=== PATIENT | male | born 1945 | race Caucasian/White ===

== ENCOUNTER → 2019-03-08 | Day surgery (SDC) | payer MEDICARE, OTHER ==
[2019-03-06 14:03] LABS: BASOPHILS % 0.5 % (0.0-1.0); EOSINOPHILS # (AUTO) 0.2 (0.0-0.4); EOSINOPHILS % 2.5 % (0.0-6.0); HEMATOCRIT 40.6 % (38.2-49.6); HEMOGLOBIN 12.5 g/dL (14.0-18.0); LYMPHOCYTES # (AUTO) 2.3 (1.0-3.2); LYMPHOCYTES % 28.4 % (18.0-39.1); MEAN CORPUSCULAR HEMOGLOBIN 28.3 pg (28-32); MEAN CORPUSCULAR HGB CONC 30.8 g/dL (31-35); MEAN CORPUSCULAR VOLUME 91.9 fL (81-99); MONOCYTES # (AUTO) 0.6 (0.2-0.8); MONOCYTES % 7.1 % (4.4-11.3); NEUTROPHILS # (AUTO) 4.9 (2.1-6.9); NEUTROPHILS % 61.2 % (38.7-80.0); PLATELET COUNT 109 x10e3/uL (140-360); RED BLOOD COUNT 4.42 x10e6/uL (4.3-5.7); RED CELL DISTRIBUTION WIDTH 14.3 % (11.7-14.4)
--- NOTE | 2019-03-06 14:40 | Diagnostic Imaging Report ---
EXAMINATION: CHEST 2 VIEWS INDICATION: Pre-operative COMPARISON: None FINDINGS: LINES/TUBES:None LUNGS:The lung volumes are low. No focal consolidation or pulmonary edema. PLEURA:No pleural effusion or pneumothorax. MEDIASTINUM:The cardiomediastinal silhouette appears normal in size and shape. BONES/SOFT TISSUES:No acute osseous injury. ABDOMEN:No free air under the diaphragm. IMPRESSION: No focal pneumonia or pulmonary edema. Signed by: Eris Major MD on 03/06/2019 2:38 PM
[~2019-03-08] MED LIST: ALLOPURINOL300 MG PO; ASPIR 8181 MG PO; ATORVASTATIN CA20 MG PO; BUPIVACAINE 0.5%/EPI 30 ML SDV INJ ONE; CEFAZOLIN SOD 1 GM/NS 50ML 100 ML IV ONE; CLOPIDOGREL75 MG PO; DEXAMETHASONE SOD PHOS INJ 4 MG/ML VIAL ONE; EPHEDRINE SULFATE INJ 50 MG/ML VIAL ONE; FENTANYL CITRATE/PF 100MCG/2 ML INJ ONE; FLOMAX0.4 MG PO; FOLIC ACID PO; KETOROLAC TROMETHAMINE 30 MG/ML VIAL ONE; LATANOPROST2.5 ML OP; LIDOCAINE HCL 2% LOCAL INJ 5 ML SDV VIAL INJ ONE; MELOXICAM7.5 MG PO; METOPROLOL SUCC50 MG PO; MIDAZOLAM HCL 2 MG/2 ML VIAL ONE; ONDANSETRON HCL INJ 2MG/ML 2ML 2 MG/ML VIAL ONE; PANTOPRAZOLE SO40 MG PO; PROPOFOL IV EMULSION 10 MG/ML 20 ML VIAL ONE; RAMIPRIL5 MG PO; SEVOFLURANE INHAL SOLN 250 ML PEN BTL ONE
--- OUTSIDE RECORDS SUMMARY | 2019-03-08 06:55 | XMS REPORT ---
Author Author [facility] Address Unknown Phone Unavailable Care Team Providers Care Mathematical Technician Name Role Phone YESI DOLAN Unavailable Unavailable Payers Payer Name Policy Type Policy Number Effective Date Expiration Date Problems This patient has no known problems. Allergies, Adverse Reactions, Alerts Allergy Name Allergy Type Status Severity Reaction(s) Onset Date Inactive Date Treating Clinician Comments IV DYE DA Active SV 2018-09-22 00:00:00 No Known Allergies DA Active U 2018-09-22 00:00:00 No Known Allergies DA Active U 2015-09-13 00:00:00 Medications This patient has no known medications. Results Test Description Test Time Test Comments Text Results Atomic Results Result Comments CHEST 2 VIEWS 2019-03-06 14:38:00 [place] [address] Patient Name: KAPIL AVILA V MR #: [id number] : 1945 Age/Sex: 73/M Req #: [id number] Adm Physician: Ordered by: YESI DOLAN MD Report #: [id number] Location: OR Room/Bed: Procedure: [id number] DX/CHEST 2 VIEWS Exam Date: Exam Time: REPORT STATUS: Signed EXAMINATION: CHEST 2 VIEWS INDICATION: Pre-operative COMPARISON: None FINDINGS: LINES/TUBES:None LUNGS:The lung volumes are low. No focal consolidation or pulmonary edema. PLEURA:No pleural effusion or pneumothorax. MEDIASTINUM:The cardiomediastinal silhouette appears normal in size and shape. BONES/SOFT TISSUES:No acute osseous injury. ABDOMEN:No free air under the diaphragm. IMPRESSION: No focal pne umonia or pulmonary edema. Signed by: Radha Parks MD on 03/06/2019 2:38 PM Dictated By: RADHA PARKS MD 37 Transcribed By: HUMAIRA on 03/06/191437 COPY TO: YESI DOLAN MD SURGICAL SPECIMENS 2018-09-30 13:58:00 RUN DATE: 09/30/18 Simran PAULSON *LIVE* PAGE 1 RUN TIME: 1358 Specimen Inquiry RUN USER: INTERFACE PATIENT: KAPIL AVILA LOC: P.5N POD B U #: [id number] AGE/SX: 73/M ROOM: [facility] RE09/27/18REG DR: Yesi Vieyra MD : 45 BED: 1 DIS: 09/28/18 STATUS: DIS Jessie TLOC: SPEC #: [id number] RECD: 09/27/18 STATUS: SOUYehuda REQ #: [id number] IRAM: 09/27/[address]: Yesi Vieyra MD ENTERED: 09/27/18 SP TYPE: SURG OTHR DR: Jono Kapser MD ORDERED: PATHGM3, PATH SPEC, DECAL, H E STAIN HISTOLOGY: TISSUE ID BLK PCS CLAUDETTE LEV / PROCEDURE DISPOSITION ____ ___ ___ ___ ___ BONE A 1 1 TISSUES: A. BONE - Lumbar Two-Lumbar Three Disc CLINICAL HISTORY Herniated Disc FINAL DIAGNOSIS LUMBAR 2-LUMBAR 3 DISC: - Benign fibrocartilaginous tissue, consistent with intervertebral disc. GROSS DESCRIPTION LUMBAR 2-LUMBAR 3 DISC: The specimen consists of multiple pieces of white-ivey fibrous tissue and possible bone which measure 3.5 x 3.5 x 1 cm in aggregate. A utility sales representative portion of the specimen is submitted in a single cassette for decalcification. RAB/eb MICROSCOPIC DESCRIPTION Microscopic performed. Signed SIGNATURE ON FILE AlesiaBrittany MD 09/30/18 1358 END OF REPORT - XR SPINE 1 V SPEC LEVEL 2018-09-28 16:05:00 Patient Name: KAPIL AVILA Unit No: [id number] EXAMS: CPT CODE: [id number] XR SPINE 1 V SPEC LEVEL [id number] Lumbar spine: COMPARISON: No prior films for comparison. LOCATION: W1 A single portable intraoperative crosstable lateral view of the lumbar spine is presented. There are 5 lumbar type vertebral bodies. A localized is found along the posterior elements at L2-L3 level. No gross fracture or dislocation seen. at 1605 Reported and signed by: Edil King MD CC: Yesi Vieyra MD Technologist: Wilmer Aceves Time: DAP (Gy m2): Air Kerma (mGy): Trscr Dt/Tm: 09/28/2018 (1605) by:[email or web address] Printed Date/Time: 09/28/2018 (0870) Name: KAPIL AVILA [facility] Phys: Yesi Lizarraga MD [address] : 1945 Age: 73 Sex: [place] [address] Loc: P.0571 1 Exam Date: 09/27/2018 Status: DIS IN PH: FAX: PAGE 1 Signed Report PROTHROMBIN TIME 2018-09-22 11:06:00 PROTHROMBIN TIME PATIENT (test code=PTP) 10.3 SECONDS 10.3-12.9 INTERNATIONAL NORMAL RATIO (test code=INR) 0.89 INR UNIT 0.9-1.11 The INR is useful only for monitoring anticoagulant therapy.It may be unreliable in the initial phase of antigoagulationand in unstable patients. Indication for Anticoagulation Recommended INR 1. Prevention of venous thomboembolism 2.0-3.0in high-risk patients; treatment of venousthrombosis and pulmonary embolism aftera course of heparin; prevention of systemicembolism in a variety of conditions, including atrial fibrillation and prothetic tissue heart valves, 2. Prosthetic mechanical heart valves; 2.5-3.5recurrent systemic embolism. THROMBOPLASTIN TIME [id number] 11:06:00* Test Item Value Reference Range Comments THROMBOPLASTIN TIME PARTIAL (test code=PTT) 30.5 SECONDS 26.0-35.9 INTERPRETATIVE DATA:Therapeutic range: Unfractionated heparin:47 - 71 seconds Argatroban:1.5 to 3 times the baseline PTT URINALYSIS [id number] 10:49:00* Test Item Value Reference Range Comments UA COLOR (test code=COLU) YELLOW DISCRIPT YELLOW UA APPEARANCE (test code=APPU) CLEAR DISCRIPT CLEAR UA GLUCOSE DIPSTICK (test code=DGLUU) NEGATIVE mg/dL NEGATIVE UA BILIRUBIN DIPSTICK (test code=BILU) NEGATIVE NEGATIVE UA KETONE DIPSTICK (test code=KETU) NEGATIVE mg/dL NEGATIVE UA SPECIFIC GRAVITY (test code=SGU) 1.020 1.005-1.030 UA BLOOD DIPSTICK (test code=KERRY) NEGATIVE NEGATIVE UA PH DIPSTICK (test code=FAIZAN) 5.5 5.0-9.0 UA PROTEIN DIPSTICK (test code=PROU) NEGATIVE mg/dL NEGATIVE UA UROBILINOGEN DIPSTICK (test code=URO) 0.2 mg/dL 0.2-1.0 UA NITRITE DIPSTICK (test code=TOR) NEGATIVE NEGATIVE UA LEUKOCYTE ESTERASE DIPSTICK (test code=LEUU) NEGATIVE NEGATIVE [id number] 13:57:00 RUN DATE: 10/28/17 [place] - [facility] PAGE 1 RUN TIME: 1358 Specimen Inqui ry RUN USER: INTERFACE PATIENT: KAPIL AVILA ACCT #: [id number] LOC: KATHI U #: [id number] AGE/SX: 72/M ROOM: RE10/25/17REG DR: Dm Bhatt MD : 45 BED: DIS: STATUS: [facility] TLOC: SPEC #: [id number] RECD: 10/25/17 STATUS: OMLLY MARICHUY #: [id number] IRAM: 10/25/17- [facility] DR: Victor Hugo Saavedra MD ENTERED: 10/25/17-1230 SP TYPE: LIVER OTHR DR: Ayden Rodriguez MD ORDERED: GROSS COPIES TO: Victor Hugo Saavedra MD [address] [place] [address] Ayden Rodriguez MD 1974 [address] [facility] [place] [address] MARKERS: INTRADEPARTMENTAL CO NSULT PROCEDURES: GROSS (10/28/17-1201) TISSUES: LIVER, NOS - BX CLINICAL HISTORY COLLECTION DATE: 10/25/17 LIVER DISEASE COMMENT Intradepartment consultation: RRB FINAL DIAGNOSIS Liver, co re needle biopsy: LIVER WITH MINIMAL TO MILD PORTAL INFLAMMATION COMPOSED OF SMALL LYMPHOCYTES, FEW NEUTROPHILS, PLASMA CELLS AND RARE EOSINOPHI LS APPROXIMATELY 10% MACROVESICULAR STEATOSIS CONTROLLED IRON STAI N SHOWS NO INCREASE IN IRON WITHIN THE HEPATOCYTES CONTROLLED TRICHROME S TAIN SHOWS NO FIBROSIS NEGATIVE FOR MALIGNANCY CLINICAL CORRELATIO N RECOMMENDED TONIA/ D [id number], [phone] * * CONTINUED ON NEXT PAGE RUN DATE: 10/28/17 [facility] PAGE 2 RUN TIME: 1358 Specimen Inquiry RUN USER: INTERFACE SPEC #: [id number] PATIENT: KAPIL AVILA #[id number] (Continued)-------- ---- FINAL DIAGNOSIS (Continued) MACROSCOPI C The specimen is received in formalin, labeled with the patient's name, and identified as "liver bx". The specimen consists of two brown core biopsies measuring 1 cm each in length by less than 0.1 cm in diameter. GROSS PER FORMED AT [facility] [address] [place] [address], [place] [address] (P)[phone] MICROSCOPIC Sections of "liver bx" show core needle biopsy tissue of liver parenchyma with relative preserva tion of the liver architecture. There is minimal to mild portal inflammation composed mainly of small lymphocytes, few neutrophils, plasma cells, and rare eosinophils. There is no significant lobular inflammation. No cholestasis is i dentified. There is approximately 10% macrovesicular steatosis. Iron stains do not show increase in iron within the hepatocytes. The trichrome stain show s no fibrosis. No malignancy is identified. MICROSCOPIC PERFORMED AT [facility] All of the stains, including any controls performed, st ain appropriately. [facility] [address] [facility], [place], [place] [id number] (p)[phone] PERFORMING SITE Diagnosis performed at: [facility], [place] [address] [facility] [place], [place] [address] Signed SIGNATURE ON FILE Heather Graham 10/28/17 1357 END OF REPORT
[2019-03-08 11:05] VITALS: BP 142/75
--- NOTE | 2019-03-09 23:46 | Operative Report ---
DATE OF PROCEDURE: 03/08/2019 SURGEON: Chon Coe MD PREOPERATIVE DIAGNOSES: Right knee medial meniscus tear and right knee degenerative joint disease of the knee. POSTOPERATIVE DIAGNOSES: Right knee medial meniscus tear and right knee degenerative joint disease of the knee. OPERATION/PROCEDURE PERFORMED: The patient underwent a right knee exam under anesthesia, right knee arthroscopy, right knee partial medial meniscectomy, right knee chondroplasty of the patella, the trochlea, the medial femoral condyle, the medial tibial plateau, the lateral femoral condyle, and lateral tibial plateau. CRUSHER OPERATOR: LETITIA Harvey. ANESTHESIA: General endotracheal intubation anesthesia. IV FLUIDS: Per the anesthesia record. BRIEF DESCRIPTION OF THE PATIENT'S OPERATIVE PROCEDURE: Mr. Brito was taken to the operating room, placed in supine position on the operating table. Following induction of general anesthesia as well as endotracheal intubation, the patient's right lower extremity was examined under anesthesia. He was found to have a mild effusion within the knee joint, but otherwise ligamentously stable knee. The patient's lower extremity was prepped and draped in standard surgical fashion. A two-port technique used to provide this patient's arthroscopic evaluation of the joint. Examination of the suprapatellar pouch and medial and lateral gutters found no evidence of loose bodies. There was, however, evidence of chondromalacia of the patellar and trochlear surfaces. The scope was advanced to the medial compartment. Examination of the medial compartment demonstrated a parrot-beak type tear of the medial meniscus with extrusion of a large portion of the medial meniscus into the intercondylar notch. There was also a large undersurface tear of the body of the meniscus. A combination of biting forceps and motorized shaver used to resect the torn portion of meniscus. There was also significant chondromalacia of the articular surfaces. A chondroplasty of the medial femoral condyle and medial tibial plateau performed at this time. The scope was then advanced to the intercondylar notch. Anterior cruciate ligament was identified and found to be intact. The scope was then advanced to the lateral compartment. Examination of the lateral compartment demonstrated chondromalacia of the articulating surfaces. A probe was used to evaluate the lateral meniscus thoroughly and there was some mild fraying of the outer rim of the meniscus, but no evidence of tear. A chondroplasty of the lateral femoral condyle and lateral tibial plateau performed at this time. Scope was advanced to the patella pouch and chondroplasties of the patella and trochlea performed. The knee was deflated with sterile normal saline. The portal sites were closed using 4-0 nylon suture. The portal sites as well as knee itself were injected with 0.5% Marcaine with epinephrine. Sterile dressings were applied and the patient was then awakened and taken to the postanesthesia care in stable condition. MD ARGELIA Adame/MORGAN /[id number]
== END | disposition home or self-care (01) ==
LOC: OR 06:49
PROVIDERS: ATTEND Specialist
DX: S83.221A Peripheral tear of medial meniscus, current injury, right knee, initial encounter (principal); S83.261A Peripheral tear of lateral meniscus, current injury, right knee, initial encounter; M17.11 Unilateral primary osteoarthritis, right knee; M22.41 Chondromalacia patellae, right knee; I25.10 Atherosclerotic heart disease of native coronary artery without angina pectoris; I25.2 Old myocardial infarction; N20.0 Calculus of kidney; R03.0 Elevated blood-pressure reading, without diagnosis of hypertension; X58.XXXA Exposure to other specified factors, initial encounter; Z01.812 Encounter for preprocedural laboratory examination; Z01.818 Encounter for other preprocedural examination; Z79.82 Long term (current) use of aspirin; Z95.5 Presence of coronary angioplasty implant and graft; Z85.46 Personal history of malignant neoplasm of prostate
CPT/HCPCS: 29881; 36415; 71046; 85025; J0690; J1100; J1885; J2001; J2250; J2405; J2704; J3010

== ENCOUNTER 2019-08-22 14:40 | Inpatient (IN) | payer MEDICARE, OTHER ==
[~2019-08-22] VITALS: Ht 170.2 cm; Wt 79.5 kg
[~2019-08-22 14:40] MED LIST changes: -BUPIVACAINE 0.5%/EPI 30 ML SDV INJ ONE; -CEFAZOLIN SOD 1 GM/NS 50ML 100 ML IV ONE; -DEXAMETHASONE SOD PHOS INJ 4 MG/ML VIAL ONE; -EPHEDRINE SULFATE INJ 50 MG/ML VIAL ONE; -FENTANYL CITRATE/PF 100MCG/2 ML INJ ONE; -KETOROLAC TROMETHAMINE 30 MG/ML VIAL ONE; -LIDOCAINE HCL 2% LOCAL INJ 5 ML SDV VIAL INJ ONE; -MIDAZOLAM HCL 2 MG/2 ML VIAL ONE; -ONDANSETRON HCL INJ 2MG/ML 2ML 2 MG/ML VIAL ONE; -PROPOFOL IV EMULSION 10 MG/ML 20 ML VIAL ONE; -SEVOFLURANE INHAL SOLN 250 ML PEN BTL ONE
[2019-08-22] MEDS ORDERED: ONDANSETRON HCL INJ 2MG/ML 2ML 2 MG/ML VIAL IV STA (15:20)
[2019-08-22] MEDS ORDERED: SODIUM CHLORIDE 0.9% 1000ML 1,000 ML IV STA (15:20)
[2019-08-22] MEDS ORDERED: MORPHINE SULFATE 2 MG/ML SYR 1ML IV STA (15:20)
[2019-08-22] MEDS ORDERED: ONDANSETRON HCL INJ 2MG/ML 2ML 2 MG/ML VIAL ONE (15:31)
--- NOTE | 2019-08-22 15:40 | NUR ---
PATIENT PLACED IN ROOM 7
[2019-08-22 15:43] LABS: BASOPHILS % 0.2 % (0.0-1.0); HEMATOCRIT 36.4 % (38.2-49.6); HEMOGLOBIN 11.7 g/dL (14.0-18.0); LYMPHOCYTES # (AUTO) 0.5 (1.0-3.2); LYMPHOCYTES % 10.9 % (18.0-39.1); MEAN CORPUSCULAR HEMOGLOBIN 28.7 pg (28-32); MEAN CORPUSCULAR HGB CONC 32.1 g/dL (31-35); MEAN CORPUSCULAR VOLUME 89.4 fL (81-99); MONOCYTES # (AUTO) 0.3 (0.2-0.8); MONOCYTES % 5.8 % (4.4-11.3); NEUTROPHILS # (AUTO) 3.9 (2.1-6.9); NEUTROPHILS % 82.7 % (38.7-80.0); PLATELET COUNT 104 x10e3/uL (140-360); RED BLOOD COUNT 4.07 x10e6/uL (4.3-5.7)
[2019-08-22] MEDS ORDERED: ACETAMINOPHEN 325 MG TAB PO ONE (15:45)
[2019-08-22 15:48] LABS: INR 0.91; PARTIAL THROMBOPLASTIN TIME 32.4 seconds (23.8-35.5); PROTHROMBIN TIME 12.8 seconds (11.9-14.5)
--- NOTE | 2019-08-22 15:51 | NUR ---
LACTIC ACID OBTAINED
[2019-08-22 15:53] LABS: BILIRUBIN,URINE NEGATIVE (NEGATIVE); CLARITY,URINE SL CLOUDY (CLEAR); COLOR,URINE YELLOW (YELLOW); KETONES,URINE NEGATIVE (NEGATIVE); LEUKOCYTE ESTERASE ,URINE NEGATIVE (NEGATIVE); NITRITE,URINE NEGATIVE (NEGATIVE); PROTEIN,URINE DIPSTICK 1+ (NEGATIVE); URINE UROBILINOGEN 0.2 mg/dL (0.2 - 1)
[2019-08-22 15:55] LABS: ALBUMIN 3.2 g/dL (3.5-5.0); ALBUMIN/GLOBULIN RATIO 0.8 (0.8-2.0); ANION GAP 13.5 mmol/L (8-16); CREATININE, SERUM 3.11 mg/dL (0.72-1.25); POTASSIUM 4.5 mmol/L (3.5-5.1)
[2019-08-22] MEDS ORDERED: PIPER-TAZ 3.375 GM 50 ML IV SCH (16:00)
[2019-08-22 16:02] LABS: CREATINE KINASE MB 1.3 ng/mL (0-5.0)
[2019-08-22 16:15] LABS: AMORPHOUS SEDIMENT,URINE FEW (FEW); BACTERIA,URINE MANY /HPF; EPITHELIAL CELLS,URINE RARE /LPF
[2019-08-22 16:16] LABS: HYALINE CASTS 0-1 (0-1)
--- NOTE | 2019-08-22 16:20 | Diagnostic Imaging Report ---
EXAMINATION: CHEST SINGLE (PORTABLE) INDICATION: Shortness of breath COMPARISON: Chest radiograph 03/06/2019 FINDINGS: LINES/TUBES:None LUNGS:The lungs are inflated. New patchy left lower lung opacity. PLEURA:No pleural effusion or pneumothorax. MEDIASTINUM:The cardiomediastinal silhouette appears normal in size and shape. BONES/SOFT TISSUES:No acute osseous injury. ABDOMEN:No free air under the diaphragm. IMPRESSION: New patchy left lower lung opacity, concerning for pneumonia in the proper clinical setting. Signed by: Eris Major MD on 08/22/2019 4:17 PM
[2019-08-22] MEDS ORDERED: AZITHROMYCIN 500MG/NS 250 ML 250 ML IV SCH (17:00)
--- NOTE | 2019-08-22 18:42 | Diagnostic Imaging Report ---
EXAM: CT Chest, Abdomen and Pelvis WITHOUT contrast INDICATION: Chest pain and flank pain concerning for renal stones. COMPARISON: Same day chest x-ray. TECHNIQUE: Chest, abdomen and pelvis were scanned utilizing a multidetector helical scanner from the lung apex to the pubic symphysis without administration of IV contrast. Absence of intravenous contrast decreases sensitivity for detection of focal lesions and vascular pathology. Coronal and sagittal reformations were obtained. Routine protocol was performed. IV CONTRAST: None ORAL CONTRAST: Water COMPLICATIONS: None RADIATION DOSE: Total DLP: 1033.67 mGy*cm Estimated effective dose: (DLP x 0.015 x size factor) mSv CTDIvol has been reviewed. It is below the limits set by the Radiation Protocol Committee (RPC). Dose modulation, iterative reconstruction, and/or weight based adjustment of the mA/kV was utilized to reduce the radiation dose to as low as reasonably achievable. FINDINGS: LINES and TUBES: None. LUNGS AND AIRWAYS: There is multifocal patchy groundglass opacities throughout both lungs. PLEURA: The pleural spaces are clear. HEART AND MEDIASTINUM: The thyroid gland is normal. There are multiple prominent mediastinal lymph nodes none of which is criteria for pathologic enlargement and likely reactive. The heart is normal in size with atherosclerotic calcification of the coronary vessels. There is no pericardial effusion. HEPATOBILIARY: No focal hepatic lesions. No biliary ductal dilation. GALLBLADDER: Distended with no radio-opaque stones or sludge. No wall thickening. SPLEEN: No splenomegaly. PANCREAS: No focal masses or ductal dilatation. ADRENALS: No adrenal nodules KIDNEYS/URETERS: There is a 6 mm obstructive stone in the right ureterovesicular junction and mild to moderate proximal hydroureteronephrosis. Additionally, there are multiple subcentimeter nonobstructing stones in both kidneys. There are multiple exophytic cysts in both kidneys, the largest on the left measuring up to 6 cm on the left. Additionally, there is a hyperdense exophytic lesion in the midpole of the right kidney which measures 1.7 x 1.5 cm. GI TRACT: There is diverticulosis coli without evidence of active inflammation. There are linear hyperdense changes in the cecum likely from prior surgery. No abnormal distention, wall thickening, or evidence of bowel obstruction. The appendix is not identified in isolation, however, there no secondary signs of appendicitis. PELVIC ORGANS/BLADDER: Radiodense seeds within the prostate gland. The urinary bladder has a normal wall contour. No large pelvic mass. LYMPH NODES: No lymphadenopathy. VESSELS: The thoracic aorta and its branches have normal caliber. The abdominal aorta and its major abdomen and pelvic branches have normal caliber with mild atherosclerotic calcification. PERITONEUM / RETROPERITONEUM: No free air or fluid. BONES: Multilevel degenerative disease of the spine with no suspicious osteolytic or osteoblastic lesions. SOFT TISSUES: There are surgical clips around the distal esophagus. Soft tissues are otherwise normal. IMPRESSION: 1. 6 mm obstructive stone in the right ureterovesical junction with mild to moderate proximal hydroureteronephrosis. 2. Multiple bilateral subcentimeter nonobstructive renal stones. 3. Hypodense exophytic right renal lesion which measures 1.5 x 1.[address] of the abdomen/pelvis (renal mass protocol) or MRI of the abdomen (renal mass protocol). Please see below for evidence-based source of these recommendations. 4. Multifocal patchy ground glass opacities throughout both lungs which likely represents an infectious process such as multifocal pneumonia (including viral pneumonia such as carotid 19) 5. Diverticulosis without evidence of active inflammation. Herivan BR, Liliana SG, Bell NM, et al. Management of the Incidental Renal Mass on CT: A White Paper of the ACR Incidental Findings Committee. JACR 2017; : Signed by: Roque Moreau MD on 08/22/2019 6:39 PM
--- NOTE | 2019-08-22 18:49 | NUR ---
DR. SANTAMARIA AT BEDSIDE EVALUATING PATIENT
--- NOTE | 2019-08-22 18:56 | Emergency Department Note ---
History of Present Illnes History of Present Illness Chief Complaint: Genitourinary History of Present Illness This is a 74 year old male PATIENT SENT BY DR ACOSTA FOR CT DONE AT OUTSIDE FACILITY SHOWING OBSTRUCTING STONE AND PT CAME TO OFFICE TODAY AND WAS FEBRILE - HE SENT DUE TO CONCERN FOR SEPSIS; STATES HE HAS A HISTORY OF KIDNEY STONES THAT NEEDED LITHOTRIPSY. PATIENT C/O RIGHT FLANK PAIN RATED 8/10, NAUSEA, COUGH, AND VOMITING OFF AND ON X 3 WEEKS. HE DOES REPORT SOME MILD SOB Historian: Patient Arrival Mode: Car Well Driller Helper Required: No Onset (how long ago): day(s) (3) Location: RIGHT FLANK Quality: PAIN Severity: moderate Onset quality: sudden Timing of current episode: intermittent Chronicity: new Context: Denies recent illness Relieving factors: none Exacerbating factors: none Associated symptoms: Reports shortness of breath Treatments prior to arrival: none Past Medical/Family History Physician Review I have reviewed the patient's past medical and family history. Any updates have been documented here. Past Medical History Recent Fever: Yes Clinical Suspicion of Infectio: Yes New/Unexplained Change in Ment: No Past Medical History: Hypertension, CAD, Kidney Stones, Hyperlipedemia Past Surgical History: T&A, PCI, Hernia Repair Other Surgery: RIGHT KNEE SURGERY Social History Smoking Cessation: Never Smoker Counseling Performed: No Alcohol Use: None Any Illegal Drug Use: No Physically hurt or threatened: No Other Any Pre-Existing Lines (PICC,: No Review of Systems Review of Systems Constitutional: Reports as per HPI, Reports fever EENTM: Reports no symptoms Cardiovascular: Reports no symptoms Respiratory: Reports dyspnea Gastrointestinal: Reports no symptoms Genitourinary: Reports no symptoms Musculoskeletal: Reports as per HPI, Reports back pain (RIGHT FLANK PAIN) Integumentary: Reports no symptoms Neurological: Reports no symptoms Psychological: Reports no symptoms Endocrine: Reports no symptoms Hematological/Lymphatic: Reports no symptoms Physical Exam Related Data Allergies: Coded Allergies: No Known Allergies (Unverified , 03/06/19) Triage Vital Signs Vital Signs Date Time Temp Pulse Resp B/P (MAP) Pulse Ox O2 Delivery O2 Flow Rate FiO2 08/22/19 14:44 102.8 98 18 119/67 95 Room Air Vital signs reviewed: Yes Physical Exam CONSTITUTIONAL Constitutional: Present well-developed, Present well-nourished HENT HENT: Present normocephalic, Present atraumatic, Present oropharynx clear/moist, Present nose normal HENT L/R: Present left ext ear normal, Present right ext ear normal EYES Eyes: Reports PERRL, Reports conjunctivae normal NECK Neck: Present ROM normal PULMONARY Pulmonary: Present effort normal, Present breath sounds normal CARDIOVASCULAR Cardiovascular: Present regular rhythm, Present heart sounds normal, Present capillary refill normal, Present normal rate GASTROINTESTINAL Abdominal: Present soft, Present nontender, Present bowel sounds normal, Present right CVA tenderness (MILD) GENITOURINARY Genitourinary: Present exam deferred SKIN Skin: Present warm, Present dry MUSCULOSKELETAL Musculoskeletal: Present ROM normal NEUROLOGICAL Neurological: Present alert, Present oriented x 3, Present no gross motor or sensory deficits PSYCHOLOGICAL Psychological: Present mood/affect normal, Present judgement normal Results Laboratory Result Diagram: 08/22/19 1500 08/22/19 1500 Laboratory Laboratory Tests Test 08/22/19 15:38 08/22/19 15:31 08/22/19 15:00 Lactic Acid Level 1.1 mmol/L (0.5-2.0) White Blood Count 4.66 x10e3/uL (4.8-10.8) Red Blood Count 4.07 x10e6/uL (4.3-5.7) Hemoglobin 11.7 g/dL (14.0-18.0) Hematocrit 36.4 % (38.2-49.6) Mean Corpuscular Volume 89.4 fL (81-99) Mean Corpuscular Hemoglobin 28.7 pg (28-32) Mean Corpuscular Hemoglobin Concent 32.1 g/dL (31-35) Red Cell Distribution Width 14.0 % (11.7-14.4) Platelet Count 104 x10e3/uL (140-360) Neutrophils (%) (Auto) 82.7 % (38.7-80.0) Lymphocytes (%) (Auto) 10.9 % (18.0-39.1) Monocytes (%) (Auto) 5.8 % (4.4-11.3) Eosinophils (%) (Auto) 0.0 % (0.0-6.0) Basophils (%) (Auto) 0.2 % (0.0-1.0) Neutrophils # (Auto) 3.9 (2.1-6.9) Lymphocytes # (Auto) 0.5 (1.0-3.2) Monocytes # (Auto) 0.3 (0.2-0.8) Eosinophils # (Auto) 0.0 (0.0-0.4) Basophils # (Auto) 0.0 (0.0-0.1) Absolute Immature Granulocyte (auto 0.02 x10e3/uL (0-0.1) Prothrombin Time 12.8 seconds (11.9-14.5) Prothromb Time International Ratio 0.91 Activated Partial Thromboplast Time 32.4 seconds (23.8-35.5) Urine Color Yellow (YELLOW) Urine Clarity Sl cloudy (CLEAR) Urine pH 5.5 (5 - 7) Urine Specific [place] 1.025 (1.010-1.025) Urine Protein 1+ (NEGATIVE) Urine Glucose (UA) Negative (NEGATIVE) Urine Ketones Negative (NEGATIVE) Urine Blood Small (NEGATIVE) Urine Nitrite Negative (NEGATIVE) Urine Bilirubin Negative (NEGATIVE) Urine Urobilinogen 0.2 mg/dL (0.2 - 1) Urine Leukocyte Esterase Negative (NEGATIVE) Urine RBC 6-10 /HPF (0-5) Urine WBC None /HPF (0-5) Urine Epithelial Cells Rare /LPF (NONE) Urine Amorphous Sediment Few (FEW) Urine Bacteria Many /HPF (NONE) Urine Hyaline Casts 0-1 (0-1) Urine Fine Granular Casts 1-5 (0) Sodium Level 136 mmol/L (136-145) Potassium Level 4.5 mmol/L (3.5-5.1) Chloride Level 106 mmol/L (98-107) Carbon Dioxide Level 21 mmol/L (22-29) Anion Gap 13.5 mmol/L (8-16) Blood Urea Nitrogen 46 mg/dL (7-26) Creatinine 3.11 mg/dL (0.72-1.25) Estimat Glomerular Filtration Rate 20 ML/MIN (60-) BUN/Creatinine Ratio 15 (6-25) Glucose Level 108 mg/dL (74-118) Calcium Level 9.0 mg/dL (8.4-10.2) Total Bilirubin 0.6 mg/dL (0.2-1.2) Aspartate Amino Transf (AST/SGOT) 54 IU/L (5-34) Alanine Aminotransferase (ALT/SGPT) 28 IU/L (0-55) Alkaline Phosphatase 82 IU/L (40-150) Creatine Kinase 285 IU/L (30-200) Creatine Kinase MB 1.30 ng/mL (0-5.0) Troponin I 0.013 ng/mL (0-0.300) B-Type Natriuretic Peptide < 10.0 pg/mL (0-100) Total Protein 7.1 g/dL (6.5-8.1) Albumin 3.2 g/dL (3.5-5.0) Globulin 3.9 g/dL (2.3-3.5) Albumin/Globulin Ratio 0.8 (0.8-2.0) Lab results reviewed: Yes Imaging Imaging results reviewed: Yes Impressions EXAMINATION: CHEST SINGLE (PORTABLE) INDICATION: Shortness of breath COMPARISON: Chest radiograph 03/06/2019 FINDINGS: LINES/TUBES:None LUNGS:The lungs are inflated. New patchy left lower lung opacity. PLEURA:No pleural effusion or pneumothorax. MEDIASTINUM:The cardiomediastinal silhouette appears normal in size and shape. BONES/SOFT TISSUES:No acute osseous injury. ABDOMEN:No free air under the diaphragm. IMPRESSION: New patchy left lower lung opacity, concerning for pneumonia in the proper clinical setting. Signed by: Eris Major MD on 08/22/2019 4:[address] ABD/PELVIS AND CT CHEST IMPRESSION: 1. 6 mm obstructive stone in the right ureterovesical junction with mild to moderate proximal hydroureteronephrosis. 2. Multiple bilateral subcentimeter nonobstructive renal stones. 3. Hypodense exophytic right renal lesion which measures 1.5 x 1.[address] of the abdomen/pelvis (renal mass protocol) or MRI of the abdomen (renal mass protocol). Please see below for evidence-based source of these recommendations. 4. Multifocal patchy ground glass opacities throughout both lungs which likely represents an infectious process such as multifocal pneumonia (including viral pneumonia such as carotid 19) 5. Diverticulosis without evidence of active inflammation. Juancho BR, Liliana SG, Bell NM, et al. Management of the Incidental Renal Mass on CT: A White Paper of the ACR Incidental Findings Committee. JACR 2017; : Signed by: Roque Moreau MD on 08/22/2019 6:39 PM Assessment & Plan Medical Decision Making MDM RIGHT KIDNEY STONE WITH FEVER AND SOB - CHECK CBC, CHEM, UA/CX, BLOOD CX'S, CXR, LACTIC, COVID - R/O UTI, SEPSIS, PNEUMONIA, COVID19, RENAL INSUFF, ELECTROLYTE ABNL CXR WITH ? LLL INFILTRATE - WILL GET CT CHEST AND ABD/PELVIS TO BETTER DEFINE HIS SOURCE OF FEVER Reassessment Reassessment D/W DR ACOSTA, DR GILMORE FOR ADMISSION, DR SANTAMARIA Assessment & Plan Final Impression: (1) Pneumonia (2) Ureterolithiasis (3) Renal insufficiency Depart Disposition: ADMITTED Last Vital Signs Date Time Temp Pulse Resp B/P (MAP) Pulse Ox O2 Delivery O2 Flow Rate FiO2 08/22/19 17:15 87 18 115/61 95 08/22/19 14:44 102.8 Room Air Home Meds Reported Medications Latanoprost (LATANOPROST) 2.5 Ml Drops, 2.5 ML OP DAILY, BOTTLE 03/06/19 Aspirin (ASPIR 81) 81 Mg Tablet.dr, 81 MG PO DAILY 03/06/19 Tamsulosin Hcl* (FLOMAX*) 0.4 Mg Cap, 0.4 MG PO DAILY, #30 CAP 03/06/19 Ramipril (RAMIPRIL) 5 Mg Capsule, 10 MG PO HS, #30 TAB 03/06/19 Pantoprazole Sodium* (PROTONIX) 40 Mg Tablet.dr, 40 MG PO DAILY, TAB 03/06/19 Metoprolol Succinate (METOPROLOL SUCCINATE) 50 Mg Tab.er.24h, 50 MG PO HS, MG 03/06/19 Meloxicam (MELOXICAM) 7.5 Mg Tablet, 15 MG PO DAILY, #30 TAB 03/06/19 [Folic Acid] No Conflict Check, 1 MG PO DAILY 03/06/19 Clopidogrel Bisulfate (CLOPIDOGREL) 75 Mg Tablet, 75 MG PO DAILY, #30 TAB 03/06/19 Atorvastatin Calcium (ATORVASTATIN CALCIUM) 20 Mg Tablet, 40 MG PO HS, #30 TAB 03/06/19 Allopurinol (ALLOPURINOL) 300 Mg Tablet, 300 MG PO DAILY, #30 TAB 03/06/19 Medications in the ED Ondansetron HCl 4 mg STK-MED ONCE .ROUTE ; Start 08/22/19 at 15:31; Stop 08/22/19 at 15:26; Status DC Morphine Sulfate 2 mg ONCE STAT IV Last administered on 08/22/19at 16:09; Admin Dose 2 MG; Start 08/22/19 at 15:20; Stop 08/22/19 at 15:39; Status DC Ondansetron HCl 4 mg ONCE STAT IV Last administered on 08/22/19at 15:40; Admin Dose 4 MG; Start 08/22/19 at 15:20; Stop 08/22/19 at 15:39; Status DC Sodium Chloride 1,000 ml @ 0 mls/hr Q0M STAT IV Last administered on 08/22/19at 16:09; Admin Dose 1,000 MLS/HR; Start 08/22/19 at 15:20; Stop 08/22/19 at 15:29; Status DC Piperacillin Sod/ Tazobactam Sod 50 ml @ 50 mls/hr 0400,1000,1600,2200 IV Last administered on 08/22/19at 16:09; Admin Dose 50 MLS/HR; Start 08/22/19 at 16:00; Stop 08/22/19 at 17:15; Status DC Acetaminophen 975 mg ONCE ONCE PO Last administered on 08/22/19at 16:09; Admin Dose 975 MG; Start 08/22/19 at 15:45; Stop 08/22/19 at 15:56; Status DC Azithromycin 250 ml @ 200 mls/hr DAILY@1700 IV Last administered on 08/22/19at 18:19; Admin Dose 200 MLS/HR; Start 08/22/19 at 17:00; Stop 08/29/19 at 16:59 Morphine Sulfate 2 mg Q3H PRN IV SEVERE PAIN (7-10); Start 08/22/19 at 17:15; Stop 08/29/19 at 17:14 Ondansetron HCl 4 mg Q4H PRN IV NAUSEA AND VOMITING; Start 08/22/19 at 17:15; Stop 09/21/19 at 17:14 KAILEY PARRA MD Aug 22, 2019 18:56
--- NOTE | 2019-08-22 19:46 | Consultation ---
DATE OF CONSULTATION: Pulmonary Critical Care Consultation CHIEF COMPLAINT: Fever, shortness of breath, and infiltrate on chest x-ray. HISTORY OF PRESENT ILLNESS: The patient is a 74-year-old man. He has a history of recurrent nephrolithiasis and some chronic renal insufficiency. He went to see his urologist today and was found to have an 8 mm stone in the ureter. He also had a fever and was sent to the ER. After arriving in the emergency department, he complains of some shortness of breath. Apparently, he has had shortness of breath for a week or so. He has also had some mild cough. His chest x-ray showed pneumonia and the CT showed bilateral ground-glass infiltrates. PAST SURGICAL HISTORY: 1. Status post prior ureteral stent. 2. Status post lithotripsy. PAST MEDICAL HISTORY: 1. Chronic renal insufficiency. 2. Nephrolithiasis. 3. Benign prostatic hypertrophy. 4. Hypercholesterolemia. ALLERGIES: NO KNOWN DRUG ALLERGIES. SOCIAL HISTORY: The patient is not an active smoker. He is not an active drinker. FAMILY HISTORY: Family history is noncontributory. REVIEW OF SYSTEMS: There are some fevers. He has no headache. He has no neck pain. He does have some shortness of breath. There is minimal cough. There is no chest pain. He has no abdominal pain. There is no nausea or vomiting. He has no leg edema. PHYSICAL EXAMINATION: VITAL SIGNS: The blood pressure is 115/61, saturation is 95%, and the pulse is 87. T-max is 102.8. HEENT: Shows no facial swelling or erythema. CARDIAC: Reveals regular rate and rhythm with normal S1 and S2. LUNGS: Auscultation of lungs reveals crackles at the bases. There is no wheezing. ABDOMEN: Soft and nontender. There is no rebound or guarding. EXTREMITIES: Shows no leg edema or calf tenderness. There is no cyanosis or clubbing. SKIN: Shows no rashes. NEUROLOGICAL: Shows no focal abnormalities. LABORATORY DATA: BUN to creatinine ratio is 46 to 3.11, and the carbon dioxide is 21. The other electrolytes are within normal limits. White blood cell count is 4.66 and the hemoglobin is 11.7. The platelet count is 104. IMPRESSION: 1. Multifocal pneumonia, possible COVID-19 infection. 2. Ureterolithiasis. 3. Chronic renal failure, stage 3. 4. Hypercholesterolemia. PLAN: 1. The patient will receive antibiotics for pneumonia as well as urinary tract pathogens. 2. Oxygen as needed. 3. Tylenol for fever. 4. Hold Lovenox for now because of the possibility of urological surgery. 5. Decadron if the patient requires oxygen. MD STEPHANIE Castillo/MORGAN /[id number]
[2019-08-22] MEDS: ATORVASTATIN 40 MG TAB PO SCH (20:16)
[2019-08-22] MEDS: CEFTRIAXONE SOD 1 GM/NS 50 ML 50 ML IV SCH (20:16)
[2019-08-22] MEDS: LATANOPROST(OPTH) 2.5 ML BTL OP SCH (20:17)
[2019-08-22] MEDS: METOPROLOL SUCCINATE 50 MG TAB XL PO SCH (20:17)
[2019-08-22] MEDS ORDERED: ATORVASTATIN 20 MG TAB PO SCH (21:00)
[2019-08-22 21:14] LABS: CREATINE KINASE MB 1.8 ng/mL (0-5.0)
[2019-08-22] MEDS ORDERED: PIPERACILLIN/TAZO 2.25 GM 50 ML IV SCH (22:00)
--- NOTE | 2019-08-23 01:53 | NUR ---
O2 level dropped to 92% while patient sleeping. Patient placed on one liter nasal cannula at this time. No distress noted. Will continue to monitor patient.
[2019-08-23] MEDS: ACETAMINOPHEN 325 MG TAB PO PRN ×3 (01:57→21:17)
[2019-08-23 03:50] LABS: CREATINE KINASE MB 2.7 ng/mL (0-5.0)
[2019-08-23 04:27] LABS: BASOPHILS % 0.2 % (0.0-1.0); HEMOGLOBIN 10.2 g/dL (14.0-18.0); LYMPHOCYTES # (AUTO) 0.8 (1.0-3.2); LYMPHOCYTES % 13.5 % (18.0-39.1); MEAN CORPUSCULAR HEMOGLOBIN 28.7 pg (28-32); MEAN CORPUSCULAR HGB CONC 31.9 g/dL (31-35); MEAN CORPUSCULAR VOLUME 89.9 fL (81-99); MONOCYTES # (AUTO) 0.3 (0.2-0.8); MONOCYTES % 5.6 % (4.4-11.3); NEUTROPHILS # (AUTO) 4.4 (2.1-6.9); PLATELET COUNT 97 x10e3/uL (140-360); RED BLOOD COUNT 3.56 x10e6/uL (4.3-5.7); RED CELL DISTRIBUTION WIDTH 14.2 % (11.7-14.4)
[2019-08-23 04:48] LABS: ALBUMIN 2.7 g/dL (3.5-5.0); ALBUMIN/GLOBULIN RATIO 0.8 (0.8-2.0); ANION GAP 13.4 mmol/L (8-16); CALCIUM 8.2 mg/dL (8.4-10.2); CREATININE, SERUM 2.8 mg/dL (0.72-1.25); POTASSIUM 4.4 mmol/L (3.5-5.1)
--- NOTE | 2019-08-23 07:05 | NUR ---
Report to ANISA De Anda
--- NOTE | 2019-08-23 08:50 | NUR ---
MEDICATED. NAD. DR PARRA CONTACTED DR ACOSTA WHO CAME BY AT 0730 ALREADY TO SEE PT. TO STATES NO SURGERY FOR PT TODAY D/T COVID AND FEVER. PT TO ADMIT FOR RENAL FAILURE. PT VOIDING IN URINAL
[2019-08-23] MEDS: FOLIC ACID 1 MG TAB PO SCH (08:54)
[2019-08-23] MEDS: TAMSULOSIN HCL 0.4 MG CAP PO SCH (08:54)
[2019-08-23] MEDS: ALLOPURINOL 300 MG TAB PO SCH (08:54)
[2019-08-23] MEDS ORDERED: NON-FORMULARY MEDICATION ([Folic Acid] 1 MG) PO SCH (09:00)
[2019-08-23] MEDS ORDERED: PANTOPRAZOLE SOD 40 MG TABEC PO SCH (09:00)
--- NOTE | 2019-08-23 09:42 | Consultation ---
DATE OF CONSULTATION: 08/23/2019 Urologic Consultation CHIEF COMPLAINT/REASON FOR CONSULTATION: COVID pneumonia, ureteral calculus with hydronephrosis. HISTORY OF PRESENT ILLNESS: Mr. Brito is a 74-year-old male patient whose normal urologist is Dr. Anish Patel. Dr. Patel was quarantined to the current COVID situation. I was asked to take care of Mr. Brito temporarily. The patient presented to the emergency room with right sharp severe flank pain, was found to have COVID pneumonia. The patient denied dysuria. Has had nausea, has had vomiting. Denied fevers. No chills. PAST MEDICAL HISTORY: See office chart. MEDICATIONS: Please see MAR. ALLERGIES: NKDA. SOCIAL HISTORY: Denied smoking or drinking. FAMILY HISTORY: Denied urologic stones or malignancies in family. REVIEW OF SYSTEMS: Noncontributory other than problems mentioned above for 12-organ systems. PHYSICAL EXAMINATION: GENERAL: An elderly male, in no acute distress. VITAL SIGNS: Currently, he is afebrile with stable vital signs. Temperature is 98.6, weight 192 pounds, height 5 feet 7 inches. HEENT: Sclerae anicteric. NECK: Supple. BACK: Without costovertebral bilaterally. ABDOMEN: Soft. It is nontender. It is nondistended. No palpable mass. No palpable hernias. No palpable adenopathy. : Normal male external genitalia. EXTREMITIES: No edema. NEUROLOGIC: Moves all extremities. PSYCH: Alert and mood appropriate. SKIN: Intact. Normal color. PERTINENT LABORATORY DATA: CT scan revealing right 5 mm distal ureteral calculus, proximal hydronephrosis, bilateral renal calculi, and BPH. Urinalysis; 6-10 reds, zero whites, negative nitrite. Sodium 138, potassium 4.4, chloride 109, bicarb 20, BUN 47, creatinine 2.8, glucose 100, hemoglobin 10, hematocrit 32, platelet count 97,000, and white blood cell count 5000. PT 12.8, PTT of 32.4. IMPRESSION: 1. Right ureteral calculus. 2. Right hydronephrosis. 3. Bilateral renal calculi. 4. Acute on chronic renal failure. 5. Coronavirus pneumonia. 6. Thrombocytopenia. 7. Leukopenia. 8. Anemia. 9. Coagulopathy. PLAN: Discussed with Anesthesia. In light of the patient's current COVID pneumonia positive, we would not perform intubation/cystoscopy retrograde pyelograms with negative urine and no fevers. The patient does not wish to undergo a nephrostomy at this time. We will follow the patient. Hopefully, the pneumonia will improve to the point where we can place a stent and ureteroscope if possible. Thank you for allowing me to participate in the care of your patient. We will be happy to follow along with you. MD MALA Cabral/MODL /[id number]
--- NOTE | 2019-08-23 11:46 | NUR ---
UPDATED TWICE BY INVESTIGATOR CASH SHORTAGE LYNDA
[2019-08-23] MEDS ORDERED: SODIUM CHLORIDE 0.9% 1000ML 1,000 ML ONE (13:22)
[2019-08-23] MEDS: ONDANSETRON HCL INJ 2MG/ML 2ML 2 MG/ML VIAL IV PRN ×2 (13:30→21:35)
[2019-08-23] MEDS ORDERED: PROMETHAZINE 25MG/SOD CHL 0.9% 50 ML ONE (13:44)
[2019-08-23] MEDS: MORPHINE SULFATE 2 MG/ML SYR 1ML IV PRN ×2 (14:03→19:09)
[2019-08-23] MEDS: SODIUM CHLORIDE 0.9% 1000ML 1,000 ML IV SCH ×2 (14:04→21:17)
--- NOTE | 2019-08-23 14:05 | NUR ---
SEEN BY MONICO NINA FOR DR ASHTON
[2019-08-23] MEDS ORDERED: PROMETHAZINE 12.5MG/ NACL 0.9% 12.5 MG/50 ML BAG IV ONE (14:15)
--- NOTE | 2019-08-23 14:27 | NUR ---
alyssa wants to keep pt to break up stone in intervental radiology.
--- NOTE | 2019-08-23 14:27 | NUR ---
per darryl liriano after phone call with dr shah.
--- NOTE | 2019-08-23 14:32 | NUR ---
pt no longer vomiting. sleeping peaceful. vss. continue to monitor.
--- NOTE | 2019-08-23 16:30 | NUR ---
dr alfonso came to er wanting to know why pt not in radiology for nephrostomy tube placement, tried to explain pt had no outstanding ir order, no consent order, previous md note states pt refused nephrostomy tube. rn called dr shah and explained above conversation, per dr shah, he stated he spoke with dr alfonso as well, and dr alfonso gave the verbal order to have rt nephrostomy tube placed and for this rn to place the order for rt nephrostomy tube per dr alfonso. verified this twice.
[2019-08-23] MEDS: PANTOPRAZOLE 40 MG 10ML VIAL IV SCH (16:39)
[2019-08-23] MEDS ORDERED: ENOXAPARIN SOD INJ 40 MG/0.4 ML SYR SC SCH (17:00)
[2019-08-23] MEDS ORDERED: ASCORBIC ACID 500 MG TAB PO SCH (17:00)
--- NOTE | 2019-08-23 17:40 | NUR ---
ARRIVED TO UNIT AT APPROXIMATELY 1720. AAOX3. ACYANOTIC. O2 AT 2L VIA NASAL CANNULA. NORMAL SALINE 1000 ML INFUSING VIA RIGHT HAND IV AT 125 ML/HR. NO DISTRESS NOTED. CALL LIGHT IN REACH. SIDE RAILS X2. BED LOW AND LOCKED. INSTRUCTED TO USE CALL LIGHT FOR ASSISTANCE. VERBALIZED UNDERSTANDING.
[2019-08-23 18:06] VITALS: BP 130/70
[2019-08-23 18:07] VITALS: BP 130/70
[2019-08-23 18:11] VITALS: BP 130/70
[2019-08-23 19:45] VITALS: BP 146/73
[2019-08-23] MEDS: CEFTRIAXONE SOD 1 GM/NS 50 ML 50 ML IV SCH (19:56)
[2019-08-23 20:00] VITALS: BP 123/73
--- NOTE | 2019-08-23 20:46 | Consultation ---
DATE OF CONSULTATION: REASON FOR CONSULTATION: Fever and chills, UTI, COVID-19. HISTORY OF PRESENT ILLNESS: The patient, who is a 74-year-old. According to his , he has been having multiple problems with kidney stone before. He went to see his urologist. He has chronic kidney disease and obstructing kidney stones. He was sent to the emergency room. The patient is complaining of pain. The patient is being admitted. His COVID-19 came back positive. According to his , he has been having fever and chills and pain, which was consistent with his kidney stone before. He is otherwise doing good. PAST MEDICAL HISTORY: He had renal stone, chronic kidney disease, nephrolithiasis, benign prostatic hypertrophy, and hypercholesterolemia. PAST SURGICAL HISTORY: Multiple lithotripsy. ALLERGIES: NKA. SOCIAL HISTORY: There is no smoking, drug abuse, or alcohol abuse. REVIEW OF SYSTEMS: Otherwise is as above. PHYSICAL EXAMINATION: GENERAL: He is currently alert and oriented. Does not seem to be in acute distress. VITAL SIGNS: Stable, afebrile. HEENT: He is not icteric. NECK: Supple. CHEST: Clear. HEART: S1 and S2. No S3, S4, or murmur. ABDOMEN: Soft. Bowel sounds present. EXTREMITIES: No edema. SKIN: No rash. IMPRESSION: 1. Nephrolithiasis obstruction, concerned about urinary tract infection and sepsis from urinary tract infection, present on admission. 2. COVID-19 with pneumonia. I think this is adding to his current problems. Discussed with Urology. Discussed with Radiology. Discussed with the . Discussed with the patient. Discussed with Internal Medicine. Discussed with Critical Care. We will put him on Rocephin 1 g daily and azithromycin 500 mg daily. He would need nephrostomy tube placement, then after that can put him on anticoagulation. Continue all his home medication. He is currently not hypoxemic, so he would not use steroid and because he has kidney disease, he would not qualify for remdesivir. Discussed with the medical team at length. MD PAULA Cabrales/MORGAN /[id number]
[2019-08-23] MEDS: ATORVASTATIN 40 MG TAB PO SCH (21:17)
[2019-08-23] MEDS: LATANOPROST(OPTH) 2.5 ML BTL OP SCH (21:37)
[2019-08-23] MEDS: METOPROLOL SUCCINATE 50 MG TAB XL PO SCH (21:38)
[2019-08-24] VITALS (8 sets, daily range): BP systolic 131–157; BP diastolic 47–84
[2019-08-24] MEDS: ONDANSETRON HCL INJ 2MG/ML 2ML 2 MG/ML VIAL IV PRN ×2 (02:28→07:03)
[2019-08-24 05:26] LABS: BASOPHILS % 0.2 % (0.0-1.0); HEMATOCRIT 33.9 % (38.2-49.6); HEMOGLOBIN 10.5 g/dL (14.0-18.0); LYMPHOCYTES # (AUTO) 0.6 (1.0-3.2); LYMPHOCYTES % 13.1 % (18.0-39.1); MEAN CORPUSCULAR HEMOGLOBIN 28.8 pg (28-32); MEAN CORPUSCULAR VOLUME 92.9 fL (81-99); MONOCYTES # (AUTO) 0.1 (0.2-0.8); MONOCYTES % 2.9 % (4.4-11.3); NEUTROPHILS # (AUTO) 4.1 (2.1-6.9); PLATELET COUNT 114 x10e3/uL (140-360); RED BLOOD COUNT 3.65 x10e6/uL (4.3-5.7); RED CELL DISTRIBUTION WIDTH 14.3 % (11.7-14.4)
[2019-08-24 05:56] LABS: ALBUMIN 2.7 g/dL (3.5-5.0); ALBUMIN/GLOBULIN RATIO 0.7 (0.8-2.0); ANION GAP 11.6 mmol/L (8-16); CALCIUM 8.6 mg/dL (8.4-10.2); CREATININE, SERUM 2.38 mg/dL (0.72-1.25); MAGNESIUM 1.6 MG/DL (1.3-2.1); POTASSIUM 4.6 mmol/L (3.5-5.1)
[2019-08-24 06:20] LABS: THYROID STIMULATING HORMONE 0.333 uIU/mL (0.350-4.940)
--- NOTE | 2019-08-24 07:16 | NUR ---
REPORT GIVEN TO DAYSHIFT NURSE. ALERT. NO SIGNS IV INFILTRATION. BED LOCKED AND IN LOW POSITION. CALL LIGHT WITHIN REACH. BED ALARM ACTIVATED.
[2019-08-24] MEDS: PANTOPRAZOLE 40 MG 10ML VIAL IV SCH ×2 (08:54→16:58)
[2019-08-24] MEDS: SODIUM CHLORIDE 0.9% 1000ML 1,000 ML IV SCH ×2 (08:54→14:15)
[2019-08-24] MEDS: TAMSULOSIN HCL 0.4 MG CAP PO SCH (09:00)
[2019-08-24] MEDS: ALLOPURINOL 300 MG TAB PO SCH (09:00)
[2019-08-24] MEDS: FOLIC ACID 1 MG TAB PO SCH (09:00)
[2019-08-24] MEDS ORDERED: ZINC SULFATE 220 MG CAP PO SCH (09:00)
[2019-08-24] MEDS: MORPHINE SULFATE 2 MG/ML SYR 1ML IV PRN ×2 (09:09→13:13)
--- NOTE | 2019-08-24 09:48 | Diagnostic Imaging Report ---
EXAM: ABDOMEN-1VIEW (KUB) DATE: 08/24/2019 9:28 AM INDICATION: Right ureterovesicular junction stone COMPARISON: CT abdomen/pelvis without contrast from 08/22/2019 FINDINGS/IMPRESSION: 6 mm calcification identified within the right hemipelvis not significantly changed in position from the prior CT examination likely resides at the right ureterovesicular junction. No other abnormal intra-abdominal calcification is appreciated. Bowel gas pattern is nonobstructive. Brachytherapy beads noted within the prostate. No acute osseous abnormality is identified. Signed by: Dr. Luan Owens MD on 08/24/2019 9:44 AM
[2019-08-24] MEDS: PROMETHAZINE 12.5MG/ NACL 0.9% 12.5 MG/50 ML BAG IV PRN ×2 (10:05→21:08)
--- NOTE | 2019-08-24 12:34 | Progress Note ---
DATE: SUBJECTIVE: The patient is seen and evaluated with physical therapy in his room. Currently, the patient comfortable in bed, supposed to be on 2 L of nasal cannula. However, he is not aware and had saturation documented between 91% to 95%. PHYSICAL EXAMINATION: GENERAL: Does not talk much, seems to be comfortable in bed. Alert and oriented, in no acute distress. VITAL SIGNS: Temperature 99.4, pulse is 87, respirations 18, and blood pressure 137/62. CV: S1-S2. CHEST: Equal expansion. No acute distress. ABDOMEN: Soft, nontender. HEENT: Moist. No pallor and no JVD. MEDICATIONS: The patient is on Rocephin, also on Zithromax. LABORATORY STUDIES: White count 4.9, hemoglobin 10.5, platelets 114, which improved. Sodium 141, potassium 4.6, creatinine 2.38. SEROLOGY: Coronavirus was detected on 08/22/2019 on PCR. Urine culture was negative was on 08/21. Blood culture was negative on 08/21. RADIOLOGY STUDIES: Showed 6 mm obstructive stone on the right side, causing mild to moderate proximal hydroureteronephrosis with multiple bilateral subcentimeter nonobstructive renal stones. Also has exophytic right renal lesions, multifocal patchy ground-glass opacities throughout both lungs and diverticulosis without evidence of active inflammation. ASSESSMENT AND PLAN: 1. Nephrolithiasis, obstructive. 2. COVID-19, very much asymptomatic. 3. Hyperlipidemia. 4. Anemia. 5. Gastritis. 6. Acute kidney injury with creatinine improving to 2.38 from 2.8. 7. Hypertension. 8. Elevated AST. 9. Continue with Rocephin. Await nephrostomy tube placement. The patient is supposedly on 2 L of nasal cannula; however, not wearing it, saturation is mostly 90s. Please refer to chart for more information. Dictated by Yo Meyer PA-C (Al) Luis Crocker MD /MODL /[id number]
[2019-08-24] MEDS ORDERED: SODIUM CHLORIDE 0.9% 250ML 250 ML ONE (13:26)
[2019-08-24] MEDS ORDERED: LIDOCAINE HCL 1% LOCAL INJ 20 ML VIAL ONE (13:26)
[2019-08-24] MEDS ORDERED: IOPAMIDOL 300MG/ML 100 ML INFUS..BTL IV ONE (13:27)
[2019-08-24] MEDS ORDERED: MIDAZOLAM HCL 2 MG/2 ML VIAL ONE (14:16)
[2019-08-24] MEDS ORDERED: FENTANYL CITRATE/PF 100MCG/2 ML INJ ONE (14:17)
--- NOTE | 2019-08-24 14:57 | NUR ---
PATIENT TRANSFERRED FROM UNIT VIA TRANSPORT STAFF AT APPROXIMATELY 1433 FOR SCHEDULED PROCEDURE.
--- NOTE | 2019-08-24 15:16 | Progress Note ---
DATE: SUBJECTIVE: The patient is not complaining of dyspnea. He has less cough. He is having less fevers. PHYSICAL EXAMINATION: VITAL SIGNS: The T-max is 100.6. The blood pressure is 156/76 and the pulse is 82. The saturation is 97% and the patient is on 2 L. HEENT: Shows no facial swelling or erythema. CARDIAC: Reveals regular rate and rhythm with normal S1 and S2. LUNGS: Auscultation of lungs reveals rhonchorous breath sounds bilaterally. There is no wheezing. ABDOMEN: Soft and nontender. There is no rebound or guarding. EXTREMITIES: Shows no leg edema or calf tenderness. There is no cyanosis or clubbing. SKIN: Shows no rashes. NEUROLOGICAL: Shows no focal abnormalities. LABORATORY DATA: BUN to creatinine ratio is 38 to 2.38, CO2 is 22 and the albumin is 2.7. White blood cell count is 12.9 and hemoglobin is 10.5. The platelet count is 114. IMPRESSION: 1. COVID-19 and viral pneumonia. 2. Ureterolithiasis with ureteral obstruction and pyelonephritis. 3. Acute kidney injury. 4. Anemia. 5. Gastritis. PLAN: 1. Continue current antibiotics. 2. Await nephrostomy tube placement. 3. Continue to wean oxygen. Shayne Weldon MD [facility]/MODL /[id number]
--- NOTE | 2019-08-24 16:10 | NUR ---
PATIENT ARRIVED TO UNIT AT APPROXIMATELY 1600. AAOX3. ACYANOTIC. RESTING IN BED. O2 AT 2L VIA NASAL CANNULA. NO DISTRESS NOTED. NEPHROSTOMY TUBE NOTED WITH PINK TINGED URINE DRAINING. DRESSING TO RIGHT FLANK CLEAN DRY AND INTACT. PATIENT REPORTS RELIEF OF NAUSEA AND VOMITTING. MOY Small THIS TIME. CALL LIGHT IN REACH. SIDE RAILS UP X2. BED LOW AND LOCKED.
--- NOTE | 2019-08-24 16:20 | Diagnostic Imaging Report ---
EXAM: US ABDOMEN LIMITED DATE: 08/24/2019 2:04 PM INDICATION: Abdominal pain, gallbladder assessment COMPARISON: CT abdomen/pelvis from 08/22/2019 FINDINGS: The pancreas is not well-visualized secondary to prominent bowel gas. The liver is normal in size measuring 13.2 cm in length. Hepatic echogenicity is within normal limits. No focal hepatic abnormality is identified. The main portal vein is patent with antegrade flow and diameter 1.0 cm, within normal limits. The gallbladder is mildly distended. There is no evidence for shadowing stones, gallbladder wall thickening, or pericholecystic fluid. There is no intra or extra hepatic ductal dilatation. The common bile duct measures 3 mm sonographic Vieyra's sign is negative. The right kidney is normal in size measuring 10.8 x 5.7 x 3.8 cm. Cortical thickness/echogenicity is within normal limits. There are multiple cysts identified within the right kidney measuring 2.6 x 3.8 x 2.8 cm within the mid pole, 2.9 x 2.5 x 2.9 cm within the inferior pole, and 2.5 x 2.3 x 2.9 cm within the mid/superior pole. Multiple punctate nonobstructive stones are identified, largest measures 3 mm. There is mild right-sided hydronephrosis, better appreciated on the prior CT examination. The visualized portions of the IVC and aorta are unremarkable. There is no ascites visualized. IMPRESSION: No sonographic evidence for acute cholecystitis. Mild right-sided hydronephrosis which was better appreciated on the prior CT examination and noted be secondary to a distal ureteral stone. Punctate nonobstructive right-sided nephroliths noted. Right renal cysts. Signed by: Dr. Luan Owens MD on 08/24/2019 4:16 PM
[2019-08-24] MEDS: ACETAMINOPHEN 325 MG TAB PO PRN (16:58)
--- NOTE | 2019-08-24 16:59 | Diagnostic Imaging Report ---
Ultrasound/fluoroscopic guided right kidney is approximately placement. History: Right-sided hydronephrosis secondary to distal ureteral stone. Modality: Ultrasound and fluoroscopy Sedation: Versed 1.5 mg and fentanyl 75 mcg was given intravenously for conscious sedation. Vital signs were monitored throughout the procedure by a nurse, and remained stable. Physician intra-service time was 0 minutes. Fluoroscopy Time: 1.3 min. Reference Air Kerma (Ka, r): 15.6 mGy. Approach: Right flank, percutaneous Estimated blood loss: < 5 cc. Specimen: None. carbon paste mixer operator: Luan Owens MD. Bullet Assembly Press Setter Operator: None. Technique/findings: Informed written consent was obtained. Discussion of risks, benefits, and alternatives were made with the patient. The patient expressed understanding and agreed to proceed. A universal timeout was performed prior to starting the procedure. All elements maximal sterile barrier technique was utilized for this procedure, including utilization of sterile scrub solution for skin prep, a large sterile sheet to cover the areas of the patient that were not prepped, and hand hygiene, mask, head covering, and sterile gown for performing radiologist and scrub technologist. Initial ultrasound images demonstrate mild right-sided hydronephrosis. 2% lidocaine was used for local anesthesia. Using ultrasound guidance, following acquisition of prior images, a 22-gauge Chiba needle was advanced into a mid pole calyx. Return of urine and injection of contrast confirmed intraluminal position. A 0.018 wire was advanced through the needle and coiled within the right renal pelvis. The needle was exchanged for an AccuStick sheath. A 0.035 Amplatz wire was advanced down the proximal ureter. The tract was dilated and an 8 Malay nephrostomy catheter was advanced over wire with pigtail formed within the right renal pelvis. Contrast injection confirmed intraluminal position. The catheter spaces skin with silk suture. A sterile dressing was applied. The patient tolerated the procedure immediate complication. Impression: Successful ultrasound/fluoroscopic-guided right percutaneous nephrostomy catheter placement with conscious sedation. Signed by: Dr. Luan Owens MD on 08/24/2019 4:55 PM
[2019-08-24] MEDS: CEFTRIAXONE SOD 1 GM/NS 50 ML 50 ML IV SCH (19:38)
[2019-08-24] MEDS: METOPROLOL SUCCINATE 50 MG TAB XL PO SCH (21:08)
[2019-08-24] MEDS: ATORVASTATIN 40 MG TAB PO SCH (21:08)
[2019-08-24] MEDS: LATANOPROST(OPTH) 2.5 ML BTL OP SCH (21:08)
--- NOTE | 2019-08-24 23:50 | NUR ---
REFUSES O2 NASAL CANULA
[2019-08-25] VITALS (9 sets, daily range): BP systolic 123–171; BP diastolic 52–72
[2019-08-25] MEDS: ONDANSETRON HCL INJ 2MG/ML 2ML 2 MG/ML VIAL IV PRN ×2 (00:01→22:29)
--- NOTE | 2019-08-25 00:15 | NUR ---
PLACED NC AT 2L/MIN Addendum: 08/25/19 at 0031 by Anny Fleming RN PLEASE INCLUDE O2 100%
--- NOTE | 2019-08-25 00:25 | NUR ---
SPOKE TO MD GILMORE'S VARNISHING MACHINE OPERATOR MAICO VALDIVIA. NEW ORDERS RECEIVED.
[2019-08-25] MEDS ORDERED: ACETAMINOPHEN 1000 MG/100 ML IV ONE (00:30)
[2019-08-25] MEDS: MORPHINE SULFATE 2 MG/ML SYR 1ML IV PRN ×4 (02:04→21:27)
[2019-08-25 05:21] LABS: BASOPHILS % 0.2 % (0.0-1.0); HEMATOCRIT 31.6 % (38.2-49.6); HEMOGLOBIN 10.1 g/dL (14.0-18.0); LYMPHOCYTES # (AUTO) 0.4 (1.0-3.2); LYMPHOCYTES % 7.3 % (18.0-39.1); MEAN CORPUSCULAR HEMOGLOBIN 28.8 pg (28-32); MONOCYTES # (AUTO) 0.1 (0.2-0.8); MONOCYTES % 2.4 % (4.4-11.3); NEUTROPHILS # (AUTO) 5.1 (2.1-6.9); NEUTROPHILS % 89.2 % (38.7-80.0); PLATELET COUNT 118 x10e3/uL (140-360); RED BLOOD COUNT 3.51 x10e6/uL (4.3-5.7); RED CELL DISTRIBUTION WIDTH 14.4 % (11.7-14.4)
[2019-08-25] MEDS: SODIUM CHLORIDE 0.9% 1000ML 1,000 ML IV SCH ×2 (05:21→06:15)
[2019-08-25 05:47] LABS: ALBUMIN 2.5 g/dL (3.5-5.0); ALBUMIN/GLOBULIN RATIO 0.7 (0.8-2.0); ANION GAP 11.1 mmol/L (8-16); CALCIUM 8.2 mg/dL (8.4-10.2); CREATININE, SERUM 2.23 mg/dL (0.72-1.25); POTASSIUM 4.1 mmol/L (3.5-5.1)
--- NOTE | 2019-08-25 07:11 | NUR ---
REPORT GIVEN TO DAYSHIFT NURSE. ALERT AND ORIENTED. NO SIGNS IV INFILTRATION. BED LOCKED AND IN LOW POSITION. CALL LIGHT WITHIN REACH. BED ALARM ACTIVATED.
[2019-08-25] MEDS: ALLOPURINOL 300 MG TAB PO SCH (09:14)
[2019-08-25] MEDS: TAMSULOSIN HCL 0.4 MG CAP PO SCH (09:14)
[2019-08-25] MEDS: FOLIC ACID 1 MG TAB PO SCH (09:14)
[2019-08-25] MEDS: PANTOPRAZOLE 40 MG 10ML VIAL IV SCH ×2 (09:14→17:11)
[2019-08-25] MEDS: PROMETHAZINE 12.5MG/ NACL 0.9% 12.5 MG/50 ML BAG IV PRN (09:15)
[2019-08-25] MEDS: AMLODIPINE BESYLATE 10 MG TAB PO SCH (10:15)
[2019-08-25] MEDS: METOCLOPRAMIDE HCL 10 MG/2ML VIAL IV SCH ×3 (12:10→20:49)
--- NOTE | 2019-08-25 12:34 | NUR ---
Elisabet ROUGH RIB GRADER notified of patient temperature of 102.8 and O2 saturation of 80-85% on room air. Ordered IV acetaminophen 1gm one time dose now, then every six hours PRN temperature greater than 100.5. Patient unable to tolerate PO medications at this time due to persistent nausea and vomiting. Emesis x8 since start of shift. Orders read back and verified. Patient placed on 5L nasal canula, O2 sat 92-94%.
[2019-08-25] MEDS ORDERED: ACETAMINOPHEN 1000 MG/100 ML IV STA (12:37)
[2019-08-25] MEDS ORDERED: ACETAMINOPHEN 1000 MG/100 ML IV PRN (12:45)
--- NOTE | 2019-08-25 14:06 | Progress Note ---
DATE: SUBJECTIVE: The patient reports increased nausea and vomiting today. He is having some increased fevers. PHYSICAL EXAMINATION: VITAL SIGNS: Temperature is 102.8. Respiratory rate is 28. Saturation is 90% on 4 L. HEENT: No facial swelling or erythema. CARDIAC: Regular rate and rhythm with normal S1 and S2. LUNGS: Auscultation of the lungs reveals rhonchorous breath sounds bilaterally. There is no wheezing. ABDOMEN: Soft, nontender. There is no rebound or guarding. EXTREMITIES: No leg edema or calf tenderness. There is no cyanosis or clubbing. SKIN: No rashes. LABORATORY DATA: White blood cell count is 5.7, hemoglobin is 10.1. The platelet count is 118,000. BUN to creatinine ratio is 35 to 2.3. Other electrolytes are within normal limits and the albumin is 2.5. IMPRESSION: 1. Ureteral obstruction with pyelonephritis. Status post nephrostomy tube placement. 2. Chronic renal failure stage 3. 3. COVID-19 and viral pneumonia. 4. Anemia. 5. Gastritis. PLAN: 1. Continue antibiotics. 2. Intravenous fluids. 3. Antiemetics. 4. Oxygen. Shayne Weldon MD LM/MORGAN /[id number]
--- NOTE | 2019-08-25 15:28 | NUR ---
CALLED PT TO DISCUSS HOME HEALTH, HE STATES ANY ONE IN NETWORK IS OKAY, SENT TO [facility]. STATES HAS A ROLLING WALKER AT HOME.
--- NOTE | 2019-08-25 16:26 | Progress Note ---
DATE: SUBJECTIVE: Mr. Brito complaining of nausea, not feeling well. He did have a nephrostomy tube. LABORATORY DATA: His blood cultures are negative. His white count 9.6 and hemoglobin 9.8. His sodium 140, potassium 3.7, and creatinine 0.74. REVIEW OF SYSTEMS: Otherwise nausea. HEENT: Negative. PULMONARY: Negative. CARDIAC: Negative. PHYSICAL EXAMINATION: GENERAL: He is currently alert and oriented with nausea. VITAL SIGNS: Stable currently. HEENT: Not icteric. NECK: Supple. CHEST: Clear. HEART: S1 and S2. No S3, S4, or murmur. ABDOMEN: Soft. IMPRESSION: 1. Nausea. I would recommend to obtain liver enzyme, amylase, and lipase. 2. Concerned about urinary tract infection. There is no urine culture done. We will put him on meropenem. 3. COVID-19. The patient is not hypoxemic. 4. Discussed with medical team. MD PAULA Cabrales/MORGAN /[id number]
[2019-08-25] MEDS: LACTATED RINGER'S 1,000 ML INJ SCH (17:11)
--- NOTE | 2019-08-25 17:12 | Progress Note ---
DATE: SUBJECTIVE: Mr. Brito is complaining of nausea, not feeling well. Discussed with the medical team. PHYSICAL EXAMINATION: GENERAL: Currently alert and oriented, does not seem to be in acute distress. VITAL SIGNS: Stable, currently afebrile. HEENT: He is not icteric. NECK: Supple. CHEST: Clear. IMPRESSION: 1. Nausea, vomiting, urinary tract infection, status post nephrostomy. I am going to stop Rocephin and azithromycin and put him on meropenem, adjust for his kidney function 500 q.12 hours. Obtain cultures. 2. Coronavirus disease-19. 3. Chronic kidney disease. We will follow. MD PAULA Cabrales/MORGAN /[id number]
[2019-08-25 19:59] LABS: BILIRUBIN,URINE SMALL (NEGATIVE); CLARITY,URINE CLOUDY (CLEAR); COLOR,URINE BROWN (YELLOW); KETONES,URINE NEGATIVE (NEGATIVE); LEUKOCYTE ESTERASE ,URINE NEGATIVE (NEGATIVE); NITRITE,URINE NEGATIVE (NEGATIVE); PROTEIN,URINE DIPSTICK 2+ (NEGATIVE); URINE UROBILINOGEN 0.2 mg/dL (0.2 - 1)
[2019-08-25 20:11] LABS: RBC,URINE >50 /HPF (0-5); WBC,URINE (MAN) 0-5 /HPF (0-5)
[2019-08-25 20:12] LABS: BACTERIA,URINE FEW /HPF
[2019-08-25] MEDS: LATANOPROST(OPTH) 2.5 ML BTL OP SCH (20:49)
[2019-08-25] MEDS: ATORVASTATIN 40 MG TAB PO SCH (20:49)
[2019-08-25] MEDS: MEROPENEM 500MG/ NS 50ML 50 ML IV SCH (20:49)
[2019-08-25] MEDS: METOPROLOL SUCCINATE 50 MG TAB XL PO SCH (20:51)
--- NOTE | 2019-08-25 23:00 | NUR ---
SPOKE TO MD GILMORE'S WET POUR MIXER MYLES FONTAINE. "REEVALUATE PAIN AFTER NEXT DOES MORPHINE AND CALL BACK".
[2019-08-26] VITALS (9 sets, daily range): BP systolic 127–182; BP diastolic 51–75
--- NOTE | 2019-08-26 00:17 | NUR ---
CALLED MD BOUCHER TO REPORT FEVER 103. LEFT MESSAGE. AWAITING CALL BACK.
[2019-08-26] MEDS: HYDRALAZINE HCL 20 MG/ML VIAL IV PRN ×2 (00:18→11:50)
[2019-08-26] MEDS: MORPHINE SULFATE 2 MG/ML SYR 1ML IV PRN (00:55)
--- NOTE | 2019-08-26 01:37 | NUR ---
SPOKE TO MD GILMORE'S SELLING MANAGER MYLES FONTAINE. AWARE OF PAIN. POSSIBLE KIDNEY SPASM R/T INFECTION. AWARE OF TEMP ND THAT IV TYLENOL WAS PROVIDED. INSTRUCTED TO CALL BACK IN TEMP OCCURS AGAIN.
[2019-08-26] MEDS: LACTATED RINGER'S 1,000 ML INJ SCH (04:33)
--- NOTE | 2019-08-26 04:36 | NUR ---
SWELLING TO R HAND PRESENT. D/C 20G IV TO R HAND CATHETER TIP INTACT. CDI DRESSING APPLIED. TOLERATED PROCEDURE WELL.
[2019-08-26 05:19] LABS: HEMATOCRIT 32.1 % (38.2-49.6); HEMOGLOBIN 10.4 g/dL (14.0-18.0); LYMPHOCYTES # (AUTO) 0.6 (1.0-3.2); LYMPHOCYTES % 7.5 % (18.0-39.1); MEAN CORPUSCULAR HEMOGLOBIN 29.9 pg (28-32); MEAN CORPUSCULAR HGB CONC 32.4 g/dL (31-35); MEAN CORPUSCULAR VOLUME 92.2 fL (81-99); MONOCYTES # (AUTO) 0.2 (0.2-0.8); MONOCYTES % 2.4 % (4.4-11.3); NEUTROPHILS % 89.1 % (38.7-80.0); PLATELET COUNT 122 x10e3/uL (140-360); RED BLOOD COUNT 3.48 x10e6/uL (4.3-5.7); RED CELL DISTRIBUTION WIDTH 14.6 % (11.7-14.4)
[2019-08-26 05:42] LABS: ALBUMIN 2.4 g/dL (3.5-5.0); ALBUMIN/GLOBULIN RATIO 0.6 (0.8-2.0); ANION GAP 14.8 mmol/L (8-16); CALCIUM 8.2 mg/dL (8.4-10.2); CREATININE, SERUM 2.04 mg/dL (0.72-1.25); POTASSIUM 3.8 mmol/L (3.5-5.1)
--- NOTE | 2019-08-26 07:08 | NUR ---
REPORT GIVEN TO DAYSHIFT NURSE. ALERT AND RESTING IN BED. NO SIGNS IV INFILTRATION. BED LOCKED AND IN LOW POSITION. CALL LIGHT WITHIN REACH. BED ALARM ACTIVATED.
[2019-08-26] MEDS: MEROPENEM 500MG/ NS 50ML 50 ML IV SCH ×2 (09:04→21:18)
[2019-08-26] MEDS: TAMSULOSIN HCL 0.4 MG CAP PO SCH (09:04)
[2019-08-26] MEDS: DEXTROSE 5%/0.9% SOD CHL 1,000 ML IV SCH (09:04)
[2019-08-26] MEDS: FOLIC ACID 1 MG TAB PO SCH (09:04)
[2019-08-26] MEDS: AMLODIPINE BESYLATE 10 MG TAB PO SCH (09:04)
[2019-08-26] MEDS: PANTOPRAZOLE 40 MG 10ML VIAL IV SCH ×2 (09:04→16:01)
[2019-08-26] MEDS: METOCLOPRAMIDE HCL 10 MG/2ML VIAL IV SCH ×4 (09:04→21:18)
[2019-08-26] MEDS: ALLOPURINOL 300 MG TAB PO SCH (09:05)
[2019-08-26 11:02] LABS: BAND NEUTROPHILS % (MANUAL) 6 %; LYMPHOCYTES % (MANUAL) 8 % (19-48); MONOCYTES % (MANUAL) 2 % (3.4-9.0); NEUTROPHILS % (MANUAL) 84 % (40-74); PLATELET ESTIMATE SLIGHTLY DECREASED; PLATELET MORPHOLOGY COMMENT NORMAL; RBC MORPHOLOGY COMMENT NORMAL
[2019-08-26] MEDS: ONDANSETRON HCL INJ 2MG/ML 2ML 2 MG/ML VIAL IV PRN ×2 (11:48→23:10)
[2019-08-26] MEDS ORDERED: LORAZEPAM INJ 2 MG/ML VIAL IV STA (13:18)
--- NOTE | 2019-08-26 15:38 | Diagnostic Imaging Report ---
Hepatobiliary Scan with Gallbladder Ejection Fraction Clinical information: 74 M with severe right lower back pain x1 week Report: Following intravenous administration of 6.3 millicuries of Tc-99m mebrofenin, dynamic images of the abdomen in the anterior projection were obtained through 48 minutes. Sincalide (CCK analog) 1.7 micrograms was administered intravenously over 30 minutes with additional imaging for determination of gallbladder ejection fraction. Perfusion to the liver is normal. Extraction of tracer from the blood pool by the liver parenchyma normal. Tracer is seen promptly within the biliary tract. The gallbladder begins to fill by 34 minutes post-injection of tracer and fills adequately. Tracer is seen in the small bowel by 27 minutes. The gallbladder ejection fraction with administration of sincalide is 59% (normal greater than 40%). Impression: 1. Filling of the gallbladder excludes the diagnosis of acute cystic duct obstruction/acute cholecystitis. 2. Normal gallbladder ejection fraction of 59% does not support the clinical diagnosis of chronic cholecystitis/gallbladder dyskinesia. Signed by: Dr. Nohemy Mallory M.D. on 08/26/2019 3:35 PM
--- NOTE | 2019-08-26 17:07 | Progress Note ---
DATE: SUBJECTIVE: Mr. Brito remain with nausea. LABORATORY DATA: White count is 7.8 and hemoglobin of 10. His sodium 140 and potassium 3.8. Liver enzymes within normal limits. AST high at 126 and bilirubin of 14 and 6.2. Blood cultures negative. Urine culture is negative. REVIEW OF SYSTEMS: Otherwise unremarkable. PHYSICAL EXAMINATION: GENERAL: He is currently alert and oriented. VITAL SIGNS: Stable, afebrile. T-max 101 and 103. HEENT: Not icteric. NECK: Supple. CHEST: Clear. HEART: S1 and S2. ABDOMEN: Soft. IMPRESSION: 1. Fever, chills, concerned about pyelonephritis as a source. The patient is status post nephrostomy. 2. Nausea and vomiting. We will get a HIDA scan. Continue with meropenem. Recheck CBC, check chem panel. Continue supportive care, follow on COVID-19, we will follow. 3. Hydronephrosis, had renal stone, nephrostomy was placed. MD PAULA Cabrales/MODL /[id number]
[2019-08-26] MEDS: ACETAMINOPHEN 325 MG TAB PO PRN (17:35)
--- NOTE | 2019-08-26 18:32 | Progress Note ---
DATE: SUBJECTIVE: The patient has less fever and less nausea or vomiting. The patient went for a HIDA scan that was negative. PHYSICAL EXAMINATION: VITAL SIGNS: The blood pressure is 142/63, saturation is 92%. HEENT: No facial swelling or erythema. CARDIAC: Reveals regular rate and rhythm with normal S1, S2. LUNGS: Auscultation of lungs reveals rhonchorous breath sounds bilaterally. There is no wheezing. ABDOMEN: Soft and nontender. There is no rebound or guarding. EXTREMITIES: No leg edema or calf tenderness. There is no cyanosis or clubbing. SKIN: No rashes. NEUROLOGICAL: No focal abnormalities. LABORATORY DATA: White blood cell count 7.8, hemoglobin is 10.4. The platelet count is 122. BUN to creatinine ratio is 34 to 2.04. Sodium is 148. Albumin is 2.4. IMPRESSION: 1. Coronavirus disease-19 and viral pneumonia. 2. Ureteral obstruction with pyelonephritis. Status post nephrostomy tube. 3. Chronic renal failure stage 3. 4. Anemia. PLAN: 1. Continue current antibiotics. 2. Continue nephrostomy tube drainage. 3. Antiemetics. 4. Wean off oxygen. Shayne Weldon MD [facility]/MORGAN /[id number]
--- NOTE | 2019-08-26 19:23 | NUR ---
Patient received received asleep in bed. No signs of pain or respiratory distress. Safety measures in place. Call light within reach.
[2019-08-26] MEDS: LATANOPROST(OPTH) 2.5 ML BTL OP SCH (21:00)
[2019-08-26] MEDS: ATORVASTATIN 40 MG TAB PO SCH (21:19)
[2019-08-26] MEDS: METOPROLOL SUCCINATE 50 MG TAB XL PO SCH (21:19)
[2019-08-27] VITALS (8 sets, daily range): BP systolic 128–151; BP diastolic 58–71
[2019-08-27] MEDS: ONDANSETRON HCL INJ 2MG/ML 2ML 2 MG/ML VIAL IV PRN (02:58)
[2019-08-27] MEDS: ZOLPIDEM TARTRATE 5 MG TAB PO PRN ×2 (02:58→22:15)
[2019-08-27] MEDS: DEXTROSE 5%/0.9% SOD CHL 1,000 ML IV SCH (05:14)
[2019-08-27 05:26] LABS: BASOPHILS % 0.1 % (0.0-1.0); HEMATOCRIT 34.1 % (38.2-49.6); HEMOGLOBIN 10.7 g/dL (14.0-18.0); LYMPHOCYTES # (AUTO) 0.6 (1.0-3.2); LYMPHOCYTES % 7.4 % (18.0-39.1); MEAN CORPUSCULAR HEMOGLOBIN 28.5 pg (28-32); MEAN CORPUSCULAR HGB CONC 31.4 g/dL (31-35); MEAN CORPUSCULAR VOLUME 90.9 fL (81-99); MONOCYTES # (AUTO) 0.2 (0.2-0.8); MONOCYTES % 2.6 % (4.4-11.3); NEUTROPHILS # (AUTO) 7.1 (2.1-6.9); NEUTROPHILS % 88.5 % (38.7-80.0); PLATELET COUNT 145 x10e3/uL (140-360); RED BLOOD COUNT 3.75 x10e6/uL (4.3-5.7); RED CELL DISTRIBUTION WIDTH 14.6 % (11.7-14.4)
[2019-08-27 06:31] LABS: ALBUMIN 2.4 g/dL (3.5-5.0); ALBUMIN/GLOBULIN RATIO 0.6 (0.8-2.0); ANION GAP 9.4 mmol/L (8-16); CALCIUM 8.4 mg/dL (8.4-10.2); CREATININE, SERUM 1.8 mg/dL (0.72-1.25); POTASSIUM 3.4 mmol/L (3.5-5.1)
--- NOTE | 2019-08-27 06:52 | NUR ---
Walking rounds done. Patient resting comfortably. Shift report given to oncoming nurse.
[2019-08-27] MEDS: METOCLOPRAMIDE HCL 10 MG/2ML VIAL IV SCH ×4 (07:30→21:30)
[2019-08-27] MEDS: FOLIC ACID 1 MG TAB PO SCH (09:00)
[2019-08-27] MEDS: ALLOPURINOL 300 MG TAB PO SCH (09:00)
[2019-08-27] MEDS: TAMSULOSIN HCL 0.4 MG CAP PO SCH (09:00)
[2019-08-27] MEDS: PANTOPRAZOLE 40 MG 10ML VIAL IV SCH ×2 (09:00→16:45)
[2019-08-27] MEDS: MEROPENEM 500MG/ NS 50ML 50 ML IV SCH ×2 (09:00→21:30)
[2019-08-27] MEDS: AMLODIPINE BESYLATE 10 MG TAB PO SCH (09:00)
[2019-08-27] MEDS ORDERED: LORAZEPAM INJ 2 MG/ML VIAL IV PRN ×2 (09:45)
[2019-08-27] MEDS: DEXTROSE 5%/0.225% SOD CHL 1,000 ML IV SCH (11:02)
--- NOTE | 2019-08-27 15:55 | Progress Note ---
DATE: SUBJECTIVE: The patient has less fever and less chills. He is not having any nausea or vomiting. His oxygen was increased yesterday, and he is still on 7 L. PHYSICAL EXAMINATION: VITAL SIGNS: Blood pressure is 139/64, O2 saturation is 94%, and pulse is 79. HEENT: Shows no facial swelling or erythema. CARDIAC: Reveals regular rate and rhythm, with normal S1, S2. LUNGS: Auscultation of lungs is crackles at the bases. There is no wheezing. ABDOMEN: Soft, nontender. There is no rebound or guarding. EXTREMITIES: Shows no leg edema or calf tenderness. There is no cyanosis or clubbing. SKIN: Shows no rashes. NEUROLOGIC: Shows no focal abnormalities. LABORATORY DATA: White blood cell count is 7.9, hemoglobin is 10.7, and platelet count is 145. BUN to creatinine ratio is 33 to 1.8 and sodium is 150. Albumin is 2.4. RADIOGRAPHIC DATA: HIDA scan is within normal limits. IMPRESSION: 1. COVID-19 and viral pneumonia. 2. Ureteral obstruction with pyelonephritis, status post nephrostomy tube. 3. Chronic renal failure, stage 3. 4. Anemia. PLAN: 1. Continue current antibiotics. 2. Continue nephrostomy tube drainage. 3. Wean oxygen as tolerated. Shayne Weldon MD [facility]/MODL /[id number]
--- NOTE | 2019-08-27 19:28 | NUR ---
Patient received lying in bed. AAO x 3. Patient had no complaints of pain. Respirations even and non-labored on 6L High Flow oxygen at 93%. Safety measures in place. Nephrostomy tube intact. Patient instructed to call for assistance when needed. Call light within reach.
[2019-08-27] MEDS: ATORVASTATIN 40 MG TAB PO SCH (21:30)
[2019-08-27] MEDS: LATANOPROST(OPTH) 2.5 ML BTL OP SCH (21:30)
[2019-08-27] MEDS: METOPROLOL SUCCINATE 50 MG TAB XL PO SCH (21:30)
[2019-08-28] VITALS (12 sets, daily range): BP systolic 127–158; BP diastolic 47–77
[2019-08-28 05:47] LABS: BASOPHILS % 0.1 % (0.0-1.0); HEMATOCRIT 38.6 % (38.2-49.6); LYMPHOCYTES # (AUTO) 0.6 (1.0-3.2); LYMPHOCYTES % 8.2 % (18.0-39.1); MEAN CORPUSCULAR HEMOGLOBIN 28.7 pg (28-32); MEAN CORPUSCULAR HGB CONC 31.1 g/dL (31-35); MEAN CORPUSCULAR VOLUME 92.3 fL (81-99); MONOCYTES # (AUTO) 0.3 (0.2-0.8); MONOCYTES % 4.3 % (4.4-11.3); NEUTROPHILS # (AUTO) 6.3 (2.1-6.9); PLATELET COUNT 176 x10e3/uL (140-360); RED BLOOD COUNT 4.18 x10e6/uL (4.3-5.7); RED CELL DISTRIBUTION WIDTH 14.5 % (11.7-14.4)
[2019-08-28] MEDS: DEXTROSE 5%/0.225% SOD CHL 1,000 ML IV SCH ×2 (06:00→13:34)
[2019-08-28 06:21] LABS: ALBUMIN 2.6 g/dL (3.5-5.0); ALBUMIN/GLOBULIN RATIO 0.6 (0.8-2.0); ANION GAP 12.5 mmol/L (8-16); CALCIUM 8.9 mg/dL (8.4-10.2); CREATININE, SERUM 1.84 mg/dL (0.72-1.25); POTASSIUM 3.5 mmol/L (3.5-5.1)
--- NOTE | 2019-08-28 07:14 | NUR ---
infectious disease progress note this is late entry for 08/27/2019 Patient seen and examined chart reviewed discussed with medical team that radiated viewed events noted The patient has less fever and less chills. He is not having any nausea or vomiting. His oxygen was increased yesterday, and he is still on 7 L. PHYSICAL EXAMINATION: VITAL SIGNS: Blood pressure is 139/64, O2 saturation is 94%, and pulse is 79. HEENT: Shows no facial swelling or erythema. CARDIAC: Reveals regular rate and rhythm, with normal S1, S2. LUNGS: Auscultation of lungs is crackles at the bases. There is no wheezing. ABDOMEN: Soft, nontender. There is no rebound or guarding. EXTREMITIES: Shows no leg edema or calf tenderness. There is no cyanosis or clubbing. SKIN: Shows no rashes. NEUROLOGIC: Shows no focal abnormalities. LABORATORY DATA: White blood cell count is 7.9, hemoglobin is 10.7, and platelet count is 145. BUN to creatinine ratio is 33 to 1.8 and sodium is 150. Albumin is 2.4. RADIOGRAPHIC DATA: HIDA scan is within normal limits. IMPRESSION: 1. COVID-19 and viral pneumonia. 2. Ureteral obstruction with pyelonephritis, status post nephrostomy tube. 3. Chronic renal failure, stage 3. 4. Anemia. We will treat for positive UTI Currently doing better If continued to improve discharge home with oral antibiotics soon We will follow
--- NOTE | 2019-08-28 07:15 | NUR ---
patient seen and examined chart reviewed Infectious disease progress note Patient is doing better Discussed with medical team The patient has less fever and less chills. He is not having any nausea or vomiting. His oxygen was increased yesterday, and he is still on 7 L. PHYSICAL EXAMINATION: VITAL SIGNS: Blood pressure is 139/64, O2 saturation is 94%, and pulse is 79. HEENT: Shows no facial swelling or erythema. CARDIAC: Reveals regular rate and rhythm, with normal S1, S2. LUNGS: Auscultation of lungs is crackles at the bases. There is no wheezing. ABDOMEN: Soft, nontender. There is no rebound or guarding. EXTREMITIES: Shows no leg edema or calf tenderness. There is no cyanosis or clubbing. SKIN: Shows no rashes. NEUROLOGIC: Shows no focal abnormalities. LABORATORY DATA: White blood cell count is 7.9, hemoglobin is 10.7, and platelet count is 145. BUN to creatinine ratio is 33 to 1.8 and sodium is 150. Albumin is 2.4. RADIOGRAPHIC DATA: HIDA scan is within normal limits. IMPRESSION: 1. COVID-19 and viral pneumonia. 2. Ureteral obstruction with pyelonephritis, status post nephrostomy tube. 3. Chronic renal failure, stage 3. 4. Anemia. [id number]
[2019-08-28] MEDS: METOCLOPRAMIDE HCL 10 MG/2ML VIAL IV SCH ×4 (07:41→21:31)
[2019-08-28] MEDS ORDERED: DEXTROSE 5% 250ML 250 ML IV ONE (08:00)
[2019-08-28] MEDS: PANTOPRAZOLE 40 MG 10ML VIAL IV SCH ×2 (08:15→16:15)
[2019-08-28] MEDS: ALLOPURINOL 300 MG TAB PO SCH (08:16)
[2019-08-28] MEDS: TAMSULOSIN HCL 0.4 MG CAP PO SCH (08:16)
[2019-08-28] MEDS: AMLODIPINE BESYLATE 10 MG TAB PO SCH (08:16)
[2019-08-28] MEDS: FOLIC ACID 1 MG TAB PO SCH (08:16)
[2019-08-28] MEDS: MEROPENEM 500MG/ NS 50ML 50 ML IV SCH ×2 (09:16→21:31)
[2019-08-28 09:31] LABS: LYMPHOCYTES % (MANUAL) 8 % (19-48); MONOCYTES % (MANUAL) 3 % (3.4-9.0); MYELOCYTES % (MANUAL) 1 % (0-0); NEUTROPHILS % (MANUAL) 88 % (40-74); PLATELET ESTIMATE ADEQUATE; PLATELET MORPHOLOGY COMMENT NORMAL; RBC MORPHOLOGY COMMENT NORMAL
--- NOTE | 2019-08-28 11:58 | Progress Note ---
DATE: SUBJECTIVE: The patient is still requiring 8 L of oxygen, although he feels symptomatically improved. PHYSICAL EXAMINATION: VITAL SIGNS: The blood pressure is 155/77, saturation is 93%, the pulse is 84. HEENT: Shows no facial swelling or erythema. CARDIAC: Reveals regular rate and rhythm with a normal S1 and S2. LUNGS: Auscultation of lungs reveals clear breath sounds bilaterally. There is no wheezing. ABDOMEN: Soft and nontender. There is no rebound or guarding. EXTREMITIES: Shows no leg edema or calf tenderness. There is no cyanosis or clubbing. SKIN: Shows no rashes. LABORATORY DATA: Sodium is 154. BUN to creatinine ratio is 37 to 1.84 and the albumin is 2.6. IMPRESSION: 1. COVID-19 and viral pneumonia. 2. Ureteral obstruction with pyelonephritis and nephrostomy tube. 3. Hypernatremia. 4. Anemia. 5. Chronic renal failure, stage 3. PLAN: 1. Continue nephrostomy tube drainage. Urology is also considering a ureteral stent. 2. Continue current antibiotics. 3. Continue to give free water and intravascular volume. 4. Monitor BUN and creatinine. Shayne Weldon MD [facility]/MOD[facility] /[id number]
[2019-08-28] MEDS ORDERED: DEXAMETHASONE SOD PHOS 10 MG/1 ML VIAL IV SCH (12:45)
--- NOTE | 2019-08-28 14:40 | Progress Note ---
DATE: SUBJECTIVE: Mr. Brito is feeling better. He is still with shortness of breath. Discussed with the medical team. PHYSICAL EXAMINATION: GENERAL: He is currently alert and oriented. VITAL SIGNS: Stable, afebrile. HEENT: Not icteric. NECK: Supple. CHEST: Clear. HEART: S1 and S2. ABDOMEN: Soft. IMPRESSION: 1. COVID-19 pneumonia. Continued to be in isolation since the onset of the symptoms, droplet and contact. 2. Ureteral obstruction, nephrolithiasis, and pyelonephritis. Cultures are negative, but has responded to antibiotic. Chronic kidney disease, anemia now is resolved. If there is a need for surgery, can proceed with surgery with proper precaution for COVID-19. Having COVID-19 does not prevent him from going to surgery at the present time. Continue oxygenation as ordered. Continue with Decadron. He is currently on meropenem, anticoagulation. We will follow. MD PAULA Cabrales/MORGAN /[id number]
[2019-08-28] MEDS: DEXAMETHASONE SOD PHOS INJ 4 MG/ML VIAL IV SCH (15:14)
[2019-08-28] MEDS: ENOXAPARIN 30 MG/0.3 ML SYR SC SCH (16:15)
--- NOTE | 2019-08-28 17:09 | NUR ---
Nutrition Intervention Note RD Recommendation(s) for Physician: -Recommend Ensure Compact BID for added nutrition -Continue current diet as ordered Plan of Care: RD following, monitoring for tolerance and adequacy Nutrition reason for involvement: length of stay RD Assessment (08/28/19) Pt is a 74 year old male admitted with pneumonia and ureterolithiasis. Pt is COVID-19+; therefore, unable to enter room due to isolation precautions. Attempted to call pt over the phone, but he did not answer. It is recorded pt has been consuming 0-50% of meals since 08/25. There are no previous weights in chart. Pt is not having any N/V per MD note. Will continue to monitor. Principal Problems/Diagnoses: pneumonia, ureterolithiasis PMH: Chronic renal insufficiency, Nephrolithiasis, Benign prostatic hypertrophy, Hypercholesterolemia. GI: last recorded BM 08/26 Skin: no pressure ulcers noted Labs: (08/27) Na 154, BUN 37, Cr 1.84, Glu 120, AST 169, ALT 118 Meds: NaCl @ 50 mL/hr, Reglan, antibiotic, folic acid, protonix, metoprolol, Lipitor, zofran, Ht: 67 inches Wt: 174 lbs BMI: 27.3 kg/m2 IBW: 148 lbs Malnutrition Evaluation (08/28/19) Unable to assess due to isolation precautions. Will re-evaluate at follow-up as appropriate. Nutrition Prescription (Diet Order): cardiac diet Estimated Nutritional Needs: 9899-4462 calories/day (18-20 kcal/kg CBW) 80-120 g protein/day (1-1.5 g pro/kg CBW) Diet Adequacy: Not meeting calorie needs, Not meeting protein needs Tolerance: Unable to assess Diet Education Needs Assessment: RD is available for diet education as needed Nutrition Care Level: low Nutrition Diagnosis: Inadequate energy intake related to decreased ability to consume sufficient energy as evidenced by pt eating < /= 50% of meals. Goal: Patient will meet 75-100% of estimated needs by follow up Progress: N/A Interventions: -fat/cholesterol/sodium- modified diet, Commercial beverage Monitoring/Evaluation: -Total energy intake, Total protein intake, Modified diet, Liquid supplement, Weight change Signed: Tracy Ellis RD, [place]
--- NOTE | 2019-08-28 17:44 | NUR ---
Spoke with patients about how he did today and she was interested to see if they are going to do the procedure on him and if they determine if he is covid negative. I let her know that if there is gong to be a procedure done someone would call her and tell her about it. She was appreciative of the call
--- NOTE | 2019-08-28 21:30 | NUR ---
PATIENT IN STABLE CONDITION, NO SIGNS OF DISTRESS NOTED. IV FLUIDS ARE RUNNING AT ORDERED RATE AND PATIENT VOICES NO PAIN AT THIS TIME. NASAL CANNULA IS INTACT AND RUNNING AT 8 LITERS, O2 SAT IS WITHIN NORMAL RANGE. NEPHROSTOMY TUBE IS INTACT, PATENT, AND FLOWING. BED IS IN LOWEST POSITION, BOTH SIDE RAILS ARE UP, BED ALARM IS ON, CALL LIGHT IS WITHIN EASY REACH, WILL CONTINUE TO MONITOR.
[2019-08-28] MEDS: LATANOPROST(OPTH) 2.5 ML BTL OP SCH (21:31)
[2019-08-28] MEDS: ATORVASTATIN 40 MG TAB PO SCH (21:31)
[2019-08-28] MEDS: METOPROLOL SUCCINATE 50 MG TAB XL PO SCH (21:32)
[2019-08-28] MEDS: ZOLPIDEM TARTRATE 5 MG TAB PO PRN (22:42)
[2019-08-29] VITALS (8 sets, daily range): BP systolic 108–138; BP diastolic 53–69
[2019-08-29] MEDS: DEXTROSE 5%/0.225% SOD CHL 1,000 ML IV SCH (05:00)
[2019-08-29 05:47] LABS: BASOPHILS % 0.2 % (0.0-1.0); HEMATOCRIT 34.6 % (38.2-49.6); LYMPHOCYTES # (AUTO) 0.5 (1.0-3.2); LYMPHOCYTES % 7.6 % (18.0-39.1); MEAN CORPUSCULAR HEMOGLOBIN 29.6 pg (28-32); MEAN CORPUSCULAR HGB CONC 31.8 g/dL (31-35); MEAN CORPUSCULAR VOLUME 93.3 fL (81-99); MONOCYTES # (AUTO) 0.3 (0.2-0.8); MONOCYTES % 4.1 % (4.4-11.3); NEUTROPHILS # (AUTO) 5.6 (2.1-6.9); NEUTROPHILS % 87.2 % (38.7-80.0); PLATELET COUNT 165 x10e3/uL (140-360); RED BLOOD COUNT 3.71 x10e6/uL (4.3-5.7); RED CELL DISTRIBUTION WIDTH 14.2 % (11.7-14.4)
[2019-08-29 06:15] LABS: ALBUMIN 2.5 g/dL (3.5-5.0); ALBUMIN/GLOBULIN RATIO 0.7 (0.8-2.0); ANION GAP 13.5 mmol/L (8-16); CALCIUM 8.4 mg/dL (8.4-10.2); CREATININE, SERUM 1.61 mg/dL (0.72-1.25); POTASSIUM 3.5 mmol/L (3.5-5.1)
--- NOTE | 2019-08-29 07:00 | NUR ---
BEDSIDE SHIFT REPORT RECEIVED FROM THE NAVIGATION TEACHER RN. EDUCATED PT ABOUT FALL PRECAUTIONS. PT VERBALIZED UNDERSTANDING. BED IS LOW AND LOCKED. SIDE RAILS X2. CALL LIGHT WITH IN EASY REACH. BED ALARM IS ON. PT DENIES NEEDS AT THIS TIME.
[2019-08-29] MEDS: METOCLOPRAMIDE HCL 10 MG/2ML VIAL IV SCH ×4 (08:30→20:15)
[2019-08-29 09:03] LABS: LYMPHOCYTES % (MANUAL) 5 % (19-48); MONOCYTES % (MANUAL) 2 % (3.4-9.0); MYELOCYTES % (MANUAL) 1 % (0-0); NEUTROPHILS % (MANUAL) 92 % (40-74); PLATELET ESTIMATE ADEQUATE; PLATELET MORPHOLOGY COMMENT NORMAL; RBC MORPHOLOGY COMMENT NORMAL
[2019-08-29] MEDS: TAMSULOSIN HCL 0.4 MG CAP PO SCH (09:08)
[2019-08-29] MEDS: PANTOPRAZOLE 40 MG 10ML VIAL IV SCH ×2 (09:08→16:07)
[2019-08-29] MEDS: MEROPENEM 500MG/ NS 50ML 50 ML IV SCH ×2 (09:08→20:15)
[2019-08-29] MEDS: FOLIC ACID 1 MG TAB PO SCH (09:08)
[2019-08-29] MEDS: ALLOPURINOL 300 MG TAB PO SCH (09:09)
[2019-08-29] MEDS: AMLODIPINE BESYLATE 10 MG TAB PO SCH (09:09)
[2019-08-29] MEDS: DEXAMETHASONE SOD PHOS INJ 4 MG/ML VIAL IV SCH (13:12)
[2019-08-29] MEDS: ENOXAPARIN 30 MG/0.3 ML SYR SC SCH (16:07)
--- NOTE | 2019-08-29 18:26 | Progress Note ---
DATE: SUBJECTIVE: The patient is feeling much better. He is down to 2 L of oxygen. He still has a nephrostomy tube in place. PHYSICAL EXAMINATION: VITAL SIGNS: Blood pressure is 135/70 and saturation is 95% on 5 L. HEENT: Shows no facial swelling or erythema. CARDIAC: Reveals regular rate and rhythm with normal S1 and S2. LUNGS: Auscultation of lungs reveals rhonchorous breath sounds bilaterally. There is no wheezing. ABDOMEN: Soft and nontender. There is no rebound or guarding. EXTREMITIES: Shows no leg edema or calf tenderness. LABORATORY DATA: CBC is within normal limits. BUN to creatinine ratio is 39 to 1.61, sodium is 151. The albumin is 2.5. IMPRESSION: 1. Viral pneumonia and COVID-19 infection. 2. Pyelonephritis. 3. Ureterolithiasis. 4. Anemia. 5. Chronic renal failure, stage 3. PLAN: 1. Continue nephrostomy drainage and current antibiotics. 2. Continue to wean oxygen. 3. Discuss discharge planning with Urology, Infectious Disease and Dr. Root. Shayne Weldon MD [facility]/MORGAN /[id number]
--- NOTE | 2019-08-29 18:26 | Progress Note ---
DATE: SUBJECTIVE: Mr. Brito is doing better. There are no new complaints. He is still on 8 L . OBJECTIVE: VITAL SIGNS: Stable, afebrile. GENERAL: Currently alert. HEENT: He is not icteric. NECK: Supple. CHEST: Clear. ABDOMEN: Soft. LABORATORY DATA: His white count 6.4 and hemoglobin 11. Sodium 151, potassium 3.5 with creatinine 1.6. His cultures and urine cultures were all negative. His repeat COVID is pending. IMPRESSION AND PLAN: 1. COVID-19, doing well, hypoxemic. 2. Renal obstruction. If there is a need to proceed with nephrostomy, we can proceed from Infectious Disease point of view. Continue supportive care. 3. Chronic kidney disease with acute tubular necrosis, getting better. We will follow. MD PAULA Cabrales/MORGAN /[id number]
--- NOTE | 2019-08-29 19:00 | NUR ---
BEDSIDE SHIFT REPORT GIVEN TO THE NETWORK SUPPORT RN. PT DENIED FURTHER NEEDS.
[2019-08-29] MEDS: METOPROLOL SUCCINATE 50 MG TAB XL PO SCH (20:15)
[2019-08-29] MEDS: LATANOPROST(OPTH) 2.5 ML BTL OP SCH (20:15)
[2019-08-29] MEDS: ATORVASTATIN 40 MG TAB PO SCH (20:15)
[2019-08-29] MEDS ORDERED: DEXTROSE 5% 500ML 500 ML IV ONE (21:45)
--- NOTE | 2019-08-29 22:23 | Progress Note ---
DATE: CONSULTING PHYSICIANS: 1. Dr. Luis Crocker with Infectious Disease. 2. Dr. Chon Phan with Urology. 3. Dr. Shayne Weldon with Pulmonology. SUBJECTIVE: The patient is supine. Complains of mild chills, shortness of breath, mild cough and nausea. His last normal bowel movement was 3 to 4 weeks ago. He states he had a loose stool yesterday and also complains of weakness. OBJECTIVE: VITAL SIGNS: Temperature 97.4, heart rate 72, blood pressure 135/69, respirations 16, and oxygen saturation 93%. GENERAL: No acute distress. LUNGS: With bibasilar crackles. Oxygen at 3 L/minute via high-flow nasal cannula humidified. HEENT: EOMI. NECK: Supple. CARDIOVASCULAR: Regular rate and rhythm. No murmur. D5 and a quarter normal saline infusing at 50 mL/h into peripheral IV. ABDOMEN: Bowel sounds positive. Soft and nontender. EXTREMITIES: Without pitting edema. No clubbing, cyanosis, or marked swelling. NEUROLOGICAL: GCS 15. Nonfocal. LABORATORY DATA: WBC 6.41, hemoglobin 11, hematocrit 34.6, and platelets 165. Sodium 151, potassium 3.5, chloride 113, CO2 28, BUN 39, creatinine 1.61, estimated GFR 42, glucose 138, fingerstick blood glucose level 140, and calcium 8.4. Total bilirubin 0.9, AST 129, ALT 114, and alkaline phosphatase 78. Total protein 6.3 and albumin 2.5. Coronavirus PCR collected stat today around 2020 hours. Coronavirus PCR collected 08/27, was sent to [facility]. No new imaging studies. 08/25, HIDA scan showed normal gallbladder, ejection fraction of 59%. ASSESSMENT AND PLAN: 1. COVID-19 pneumonia with sepsis. Continue Merrem per Infectious Disease. Lovenox, Decadron. Currently requiring 3 L of oxygen nasal cannula via high-flow. 2. Obstructive right ureterovesical junction stone, status post nephrostomy. Urology following. Repeat coronavirus collected yesterday was sent to [facility]. Coronavirus PCR ordered stat today and specimen is to be sent to [facility]. If positive, the patient will need to follow up later for procedure, however, if coronavirus is negative and per Dr. Phan, the patient can have lithotripsy. 3. Acute kidney injury. Creatinine 1.61, improving. Continue IV fluids and monitor. 4. Hypertension, controlled. Continue same. Blood pressure 135/69. Monitor. 5. Transaminitis due to #1. LFT slightly better today. Monitor. 6. Gastroenteritis due to #1. Severe gastroesophageal reflux disease at baseline. Continue PPI b.i.d. and Reglan. 7. Hypernatremia. Sodium 151 (154). We will give D5W 500 mL once. Continue current IV fluids. Monitor. 8. Mild hypokalemia. Potassium level 3.5 (3.5). Monitor. 9. Prophylaxis. Lovenox and Protonix. 10. Billing code [id number]. Time spent 35 minutes. Dictated by Yadiel Redmond NP MD [facility]/MODL /[id number]
[2019-08-29] MEDS ORDERED: MORPHINE SULFATE 2 MG/ML SYR 1ML IV ONE (23:30)
[2019-08-30] VITALS (8 sets, daily range): BP systolic 119–145; BP diastolic 53–74
[2019-08-30] MEDS: DEXTROSE 5%/0.225% SOD CHL 1,000 ML IV SCH ×2 (00:58→22:25)
--- NOTE | 2019-08-30 02:15 | NUR ---
PATIENT VOICED PAIN IN BACK BUT WAS PREVIOUSLY MEDICATED EARLIER AND WAS NOT YET DUE. RECHECKED PATIENT AND WAS RESTING IN BED SLEEPING, WILL CONTINUE TO MONITOR.
[2019-08-30 05:42] LABS: HEMATOCRIT 33.3 % (38.2-49.6); HEMOGLOBIN 10.6 g/dL (14.0-18.0); LYMPHOCYTES # (AUTO) 0.5 (1.0-3.2); LYMPHOCYTES % 7.8 % (18.0-39.1); MEAN CORPUSCULAR HEMOGLOBIN 29.4 pg (28-32); MEAN CORPUSCULAR HGB CONC 31.8 g/dL (31-35); MEAN CORPUSCULAR VOLUME 92.2 fL (81-99); MONOCYTES # (AUTO) 0.3 (0.2-0.8); MONOCYTES % 4.2 % (4.4-11.3); NEUTROPHILS # (AUTO) 5.4 (2.1-6.9); NEUTROPHILS % 86.9 % (38.7-80.0); PLATELET COUNT 164 x10e3/uL (140-360); RED BLOOD COUNT 3.61 x10e6/uL (4.3-5.7); RED CELL DISTRIBUTION WIDTH 13.8 % (11.7-14.4)
[2019-08-30 06:07] LABS: ALBUMIN 2.3 g/dL (3.5-5.0); ALBUMIN/GLOBULIN RATIO 0.6 (0.8-2.0); ANION GAP 12.5 mmol/L (8-16); CALCIUM 7.9 mg/dL (8.4-10.2); CREATININE, SERUM 1.3 mg/dL (0.72-1.25); MAGNESIUM 1.5 MG/DL (1.3-2.1); POTASSIUM 3.5 mmol/L (3.5-5.1)
--- NOTE | 2019-08-30 06:38 | NUR ---
RECEIVED CALL FROM LAB REGARDING THE PATIENT HAVING A POSITIVE COVID TEST. PAGED DR ACOSTA TO INFORM OF SITUATION.
--- NOTE | 2019-08-30 07:08 | Diagnostic Imaging Report ---
EXAMINATION: CHEST SINGLE (PORTABLE) INDICATION: Hypoxia. COMPARISON: Chest radiograph 08/22/2019. FINDINGS: LINES/TUBES:None LUNGS:The lungs are inflated. Increasing patchy opacities throughout the left lung and new patchy opacities in the right upper lung. PLEURA:No pleural effusion or pneumothorax. MEDIASTINUM:The cardiomediastinal silhouette appears normal in size and shape. BONES/SOFT TISSUES:No acute osseous injury. ABDOMEN:No free air under the diaphragm. IMPRESSION: Increasing bilateral multifocal patchy opacities, compatible with pneumonia. Signed by: Dr. Alber Humphrey MD on 08/30/2019 7:04 AM
[2019-08-30] MEDS: MEROPENEM 500MG/ NS 50ML 50 ML IV SCH ×2 (08:42→21:20)
[2019-08-30] MEDS: METOCLOPRAMIDE HCL 10 MG/2ML VIAL IV SCH ×4 (08:42→21:20)
[2019-08-30] MEDS: TAMSULOSIN HCL 0.4 MG CAP PO SCH (08:43)
[2019-08-30] MEDS: FOLIC ACID 1 MG TAB PO SCH (08:43)
[2019-08-30] MEDS: PANTOPRAZOLE 40 MG 10ML VIAL IV SCH ×2 (08:43→16:34)
[2019-08-30] MEDS: AMLODIPINE BESYLATE 10 MG TAB PO SCH (08:44)
[2019-08-30] MEDS: ALLOPURINOL 300 MG TAB PO SCH (08:44)
[2019-08-30] MEDS ORDERED: VITAMIN C500 MG PO (11:09)
[2019-08-30] MEDS ORDERED: DECADRON6 MG PO (11:09)
[2019-08-30] MEDS ORDERED: NORVASC10 MG PO (11:09)
[2019-08-30] MEDS ORDERED: ASPIRIN ENTERI325 MG PO (11:09)
[2019-08-30] MEDS ORDERED: ACETAMINOPHEN325 M1 PO (11:09)
[2019-08-30] MEDS ORDERED: VITAMIN D31 GM PO (11:09)
[2019-08-30] MEDS ORDERED: ZINC SULFATE220 M1 PO (11:09)
--- NOTE | 2019-08-30 13:37 | Discharge Summary ---
PRIMARY CARE PHYSICIAN: Dr. Ayden Rodriguez. CONSULTING PHYSICIANS: 1. Dr. Luis Crocker with Infectious Disease. 2. Dr. Chon Phan with Urology. 3. Dr. Shayne Weldon with Pulmonology. CHIEF COMPLAINT: Right flank pain. HISTORY OF PRESENT ILLNESS: The patient is a 74-year-old male, who admitted with complaints of right lower back pain, that began one week ago. On , he saw Dr. Patel, who scheduled a CT of the abdomen and pelvis. On the following Wednesday, the pain got so bad that he went to the emergency room, where a kidney stone was found. He was sent with Dr. Phan, since Dr. Patel was sick; had been having nausea and vomiting for 3 days. PAST MEDICAL HISTORY: BPH, hyperlipidemia, gout, gastroesophageal reflux disease, hypertension, prostate cancer, glaucoma, coronary artery disease with PCI. PAST SURGICAL HISTORY: Back surgery, urethral stent, right knee surgery, right eye shunt. FAMILY HISTORY: Noncontributory. SOCIAL HISTORY: Noncontributory. ALLERGIES: NO KNOWN ALLERGIES. ADMITTING DIAGNOSES: 1. COVID-19 pneumonia with sepsis, present on admission. 2. Obstructive right UVJ stone. 3. Urinary tract infection, present on admission. 4. Chronic kidney disease, stage 3. 5. Hypertension. 6. Hyperlipidemia. 7. Benign prostatic hypertrophy. DISCHARGE DIAGNOSES: 1. COVID-19 pneumonia with sepsis, present on admission. 2. Obstructive right UVJ stone, status post nephrostomy. 3. Acute kidney injury. 4. Controlled hypertension. 5. Transaminitis due to #1. 6. Gastroenteritis due to #1. 7. Hypernatremia. 8. Mild hypokalemia. On 08/22/2019, WBCs 4.66, hemoglobin 11.7, hematocrit 36.4, and platelets 104. Coagulation within normal limits. Sodium 136, potassium 4.5, chloride 106, CO2 of 21, anion gap 13.5, BUN 46, creatinine 3.11, estimated GFR 20, glucose 108, total bilirubin 0.6, AST 54, ALT 28, alkaline phosphatase 82. Creatine kinase 285, CK-MB 1.3, troponin I 0.013. Total protein 7.1, albumin 3.2. Creatine kinase later 270 and 307. Lactic acid later 1.1. Coronavirus PCR detected on 08/22/2019 and 08/28/2019 as well as 08/29/2019. Blood cultures x2 collected on , showed no growth after 5 days. Final urine culture collected on 08/22/2019, showed no growth after 36 to 48 hours. Another urine culture collected on 08/25/2019, showed no growth after 36 to 48 hours. These are all final results. Chest x-ray on 08/22/2019, showed new patchy left lower lung opacity concerning for pneumonia in the proper clinical setting. CT of the abdomen and pelvis on 08/22/2019, showed 6 mm obstructive stone in the right uterovaginal fascicular junction with [id number] proximal hydroureteronephrosis. Multiple bilateral subcentimeter nonobstructive renal stones, hypotensive, exophytic right renal lesion, which measures 1.5 x 1.7 cm. Multifocal patchy ground-glass opacity throughout both lungs, which likely represents an infectious process such as multifocal pneumonia including viral pneumonia such as COVID-19, diverticulosis without evidence of acute inflammation. CT of the chest on 08/22/2019, showed similar findings as described in the CT of the abdomen. Ultrasound of the abdomen showed no sonographic evidence for acute cholecystitis. Mild right-sided hydronephrosis, which was better appreciated on the prior CT exam. Punctate nonobstructive right-sided nephrolith, right renal cysts. KUB on 08/24/2019, showed 6 mm calcification identified within the right hemipelvis, not significantly changed in position from the prior CT exam, likely resides at the right UVJ. Nephrostogram on 08/24/2019, showed successful ultrasound/fluoroscopic guided right percutaneous nephrostomy catheter placement with conscious sedation. HIDA scan on 08/26/2019, showed filling of the gallbladder excludes the diagnosis of acute cystic duct obstruction/acute cholecystitis, normal gallbladder, ejection fraction of 59%, does not support the clinical diagnosis of chronic cholecystitis/gallbladder dyskinesia. The final chest x-ray on 08/30/2019, today showed increasing bilateral multifocal patchy opacities compatible with pneumonia. Coronavirus test was rechecked last night stat and has come back positive again. Thus, lithotripsy will not be done by Dr. Phan and the patient followup with Urology on an outpatient basis. The patient will go home on aspirin 325 mg daily, Decadron 6 mg daily for 7 days to finish out 10 days, Tylenol p.r.n., Norvasc 10 mg p.o. daily, vitamin C 500 mg p.o. b.i.d. for a month, zinc sulfate 220 mg p.o. daily for a month, vitamin D 400 units p.o. daily for a month. His cough is very mild. Thus, we will not send him home with Ventolin inhaler. Discharged on a cardiac diet today. Activity level as tolerated. Wean oxygen gradually as tolerated, keeping oxygen saturation greater than 94%. Follow up with PCP, Dr. Ayden Rodriguez as well as Dr. Crocker in a month. Call Dr. Phan to make an appointment. Mild hypokalemia with potassium 3.5. We will ask that 20 mEq potassium chloride to be given orally once prior to discharge. Home oxygen eval was done. Oxygen saturation at rest on room air 86%. Oxygen saturation while being inserted on room air 85%, and oxygen saturation being exerted on 4 L/minute of oxygen 89%. VITAL SIGNS: Temperature 97.9, heart rate 78, blood pressure 119/79, respirations 20, and oxygen saturation 94%. LABORATORY DATA: Today; sodium 143, potassium 3.5, chloride 106, CO2 of 28, BUN 33, creatinine 1.3, glucose 130. WBC 6.19, hemoglobin 10.6, hematocrit 33.3, platelets 164, and neutrophils 86.9%. Total bilirubin 1.0, AST 84, ALT 90, alkaline phosphatase 70. Dictated by Yadiel Redmond, MONICO Jeffrey Root MD [facility]/MODL /[id number]
--- NOTE | 2019-08-30 14:05 | NUR ---
4 this is infectious disease progress note Patient seen and examined chart reviewed this is day #8 There is no plan for surgery per urology The patient is feeling better present time there is no complaints review of system is weak and shortness of breath but overall a lot better SUBJECTIVE: The patient is supine. Complains of mild chills, shortness of breath, mild cough and nausea. His last normal bowel movement was 3 to 4 weeks ago. He states he had a loose stool yesterday and also complains of weakness. OBJECTIVE: VITAL SIGNS: Temperature 97.4, heart rate 72, blood pressure 135/69, respirations 16, and oxygen saturation 93%. GENERAL: No acute distress. LUNGS: With bibasilar crackles. Oxygen at 3 L/minute via high-flow nasal cannula humidified. HEENT: EOMI. NECK: Supple. CARDIOVASCULAR: Regular rate and rhythm. No murmur. D5 and a quarter normal saline infusing at 50 mL/h into peripheral IV. ABDOMEN: Bowel sounds positive. Soft and nontender. EXTREMITIES: Without pitting edema. No clubbing, cyanosis, or marked swelling. NEUROLOGICAL: GCS 15. Nonfocal. LABORATORY DATA: WBC 6.41, hemoglobin 11, hematocrit 34.6, and platelets 165. Sodium 151, potassium 3.5, chloride 113, CO2 28, BUN 39, creatinine 1.61, estimated GFR 42, glucose 138, fingerstick blood glucose level 140, and calcium 8.4. Total bilirubin 0.9, AST 129, ALT 114, and alkaline phosphatase 78. Total protein 6.3 and albumin 2.5. Coronavirus PCR collected stat today around 2020 hours. Coronavirus PCR collected 08/27, was sent to [facility]. No new imaging studies. 08/25, HIDA scan showed normal gallbladder, ejection fraction of 59%. ASSESSMENT AND PLAN: 1. COVID-19 pneumonia with sepsis. Doing better . Lovenox, Decadron. Finish 10 days Currently requiring 3 L of oxygen nasal cannula via high-flow. 2. Obstructive right ureterovesical junction stone, status post nephrostomy. Urology following. Repeat coronavirus collected yesterday was sent to [facility]. Coronavirus PCR ordered stat today and specimen is to be sent to [facility]. If positive, the patient will need to follow up later for procedure, however, if coronavirus is negative and per Dr. Phan, the patient can have lithotripsy. 3. Acute kidney injury. Creatinine 1.61, improving. Continue IV fluids and monitor. 4. Hypertension, controlled. Continue same. Blood pressure 135/69. Monitor. 5. Transaminitis due to #1. LFT slightly better today. Monitor. 6. Gastroenteritis due to #1. Severe gastroesophageal reflux disease at baseline. Continue PPI b.i.d. and Reglan. 7. Hypernatremia. Sodium 151 (154). We will give D5W 500 mL once. Continue current IV fluids. Monitor. 8. Mild hypokalemia. Potassium level 3.5 (3.5). Monitor. 9. Prophylaxis. Lovenox and Protonix. 10. Billing code [id number]. Time spent 35 minutes.
[2019-08-30] MEDS: DEXAMETHASONE SOD PHOS INJ 4 MG/ML VIAL IV SCH (15:13)
[2019-08-30] MEDS: ENOXAPARIN 30 MG/0.3 ML SYR SC SCH (16:34)
--- NOTE | 2019-08-30 19:32 | NUR ---
Patient received sitting up in bed. AAO x 3. Patient had no complaints of pain. Respirations even and non-labored on 7L high flow oxygen. Safety measures in place. Patient instructed to call for assistance when needed. Call light within reach.
[2019-08-30] MEDS: ATORVASTATIN 40 MG TAB PO SCH (21:20)
[2019-08-30] MEDS: LATANOPROST(OPTH) 2.5 ML BTL OP SCH (21:20)
[2019-08-30] MEDS: METOPROLOL SUCCINATE 50 MG TAB XL PO SCH (21:20)
--- NOTE | 2019-08-30 21:52 | NUR ---
Patient complained of inability to go to sleep. Selina Redmond (HEAD TELLER) called . Order received to re-instate Ambien 5 mg PO HS PRN.
[2019-08-30] MEDS ORDERED: ZOLPIDEM TARTRATE 5 MG TAB PO PRN (22:00)
[2019-08-31] VITALS: BP 124/59
[2019-08-31 04:00] VITALS: BP 117/58
--- NOTE | 2019-08-31 06:00 | NUR ---
Patient 's oxygen gradually weaned from 7L high flow oxygen to 5L. Patient's oxygen saturation recorded as 92%.
[2019-08-31 08:04] VITALS: BP 127/58
[2019-08-31 08:27] VITALS: BP 127/58
[2019-08-31] MEDS: MEROPENEM 500MG/ NS 50ML 50 ML IV SCH (08:30)
[2019-08-31] MEDS: TAMSULOSIN HCL 0.4 MG CAP PO SCH (08:30)
[2019-08-31] MEDS: PANTOPRAZOLE 40 MG 10ML VIAL IV SCH (08:30)
[2019-08-31] MEDS: METOCLOPRAMIDE HCL 10 MG/2ML VIAL IV SCH (08:30)
[2019-08-31] MEDS: AMLODIPINE BESYLATE 10 MG TAB PO SCH (08:31)
[2019-08-31] MEDS: FOLIC ACID 1 MG TAB PO SCH (08:31)
[2019-08-31] MEDS: ALLOPURINOL 300 MG TAB PO SCH (08:31)
[2019-08-31 13:35] VITALS: BP 135/74
[2019-08-31] MEDS: DEXAMETHASONE SOD PHOS INJ 4 MG/ML VIAL IV SCH (14:00)
--- NOTE | 2019-08-31 14:54 | NUR ---
ORDERS FOR HOME 02 SATS ON ROOM AIR 85% CHOICE LETTER SIGNED FOR [facility] [phone] COPY TO PT ORIGINAL TO CHART NOTIFIED [facility] WITH [facility] OF ORDER FAXED CLINICALS TO [phone] CONFIRMATION REC'D GAVE 2 PORTABLE TANKS TO NURSE GAGNON TO GIVE PT INSTRUCTED PT TO CALL [facility] WHEN HE GETS HOME SO THEY CAN DELIVER CONCENTRATOR
[2019-08-31] MEDS ORDERED: PANTOPRAZOLE SOD 40 MG TABEC PO SCH (16:30)
[2019-08-31] MEDS ORDERED: METOCLOPRAMIDE HCL 10 MG TAB PO SCH (16:30)
--- NOTE | 2019-08-31 16:49 | Progress Note ---
DATE: SUBJECTIVE: The patient is now requiring less oxygen. It is down to 4 L. PHYSICAL EXAMINATION: VITAL SIGNS: The patient is afebrile. The vital signs are stable. HEENT: Shows no facial swelling or erythema. CARDIAC: Reveals regular rate and rhythm with normal S1, S2. LUNGS: Auscultation of lungs reveals crackles at the bases. There is no wheezing. ABDOMEN: Soft, nontender. There is no rebound or guarding. EXTREMITIES: Shows no leg edema or calf tenderness. There is no cyanosis or clubbing. SKIN: Shows no rashes. NEUROLOGICAL: Shows no focal abnormalities. IMPRESSION: 1. Viral pneumonia and COVID-19 infection. 2. Pyelonephritis. 3. Ureterolithiasis. 4. Anemia. 5. Chronic renal failure, stage 3. PLAN: 1. The patient will go home with nephrostomy tube and follow up with Urology. 2. Home oxygen. 3. The patient should have low-dose Lovenox or high-dose aspirin for one month after discharge. Shayne Weldon MD [facility]/MODL /[id number]
[2019-08-31] MEDS: DEXTROSE 5%/0.225% SOD CHL 1,000 ML IV SCH (17:00)
[2019-08-31] MEDS: ENOXAPARIN 30 MG/0.3 ML SYR SC SCH (17:13)
[2019-08-31 17:39] VITALS: BP 135/62
--- NOTE | 2019-08-31 18:08 | NUR ---
Pt discharged home at this time. Pt is able verbalize needs. Pt was discharged with home oxygen and properly demonstrated how to use oxygen. Pt was sent home with prescriptions and verbalized understanding of all new medications. Breaths even and unlabored on 4L/NC. Discussed all discharge and follow up appointments with patient and .
--- NOTE | 2019-08-31 18:50 | Progress Note ---
DATE: SUBJECTIVE: Mr. Brito remains weak, doing well. There are no new complaints. PHYSICAL EXAMINATION: GENERAL: He is currently alert, oriented. VITAL SIGNS: Stable, afebrile. HEENT: Not icteric. NECK: Supple. CHEST: Clear. PLAN: Discussed with the patient. We will try to wean him down to 4 L and encourage him to go to the restroom, he was able to without any problems. The patient can be discharged home with oxygen 4 L to wean down as an outpatient, Ventolin inhaler for cough, supportive care, Tylenol. The patient is not infectious after 3 weeks since the onset of symptoms. There is no need to repeat the PCR testing. Discussed with the patient. MD PAULA Cabrales/MODL /[id number]
--- NOTE | 2019-09-01 01:47 | Discharge Summary ---
ADDENDUM: Yesterday, on 08/29, a home oxygen evaluation was completed with oxygen saturation at rest on room air 86%, . Oxygen saturation being exerted on room air 85%, and oxygen saturation being exerted on 4 L/minute of oxygen 89%. The patient was kept overnight given his home oxygen evaluation readings. Essentially, no change overnight. No new events. This morning, the patient feeling better. Home oxygen evaluation was repeated this morning with oxygen saturation at rest on room air 93%, oxygen saturation being exerted on room air 87%, and oxygen saturation being exerted on 4 L/minute of oxygen 94%. The patient will be discharged home today given the improvement of home oxygen evaluation. His vital signs today, temperature 98.2, heart rate 72, blood pressure 127/58, respirations 18, and oxygen saturation 98%, which was at 8:27 this morning. No new lab results. Please see full discharge summary for details. I will send him home on the prescriptions that have already been written. Dictated by Yadiel Redmond NP MD [facility]/CHRISTIANL /[id number]
--- NOTE | 2019-09-01 10:55 | NUR ---
Spoke with Hemalatha with [facility]. States pt's declined home health, said she can take care of pt.
== END 2019-08-31 18:08 | disposition home health service (06) | DRG 871 ==
LOC: ER 15:25 → ERHOLD 17:15 → IMCU 08-23 17:42
PROVIDERS: ADMIT Internal Medicine; ATTEND Internal Medicine
PROC: 8E0ZXY6 Isolation (ICD-10-PCS; principal; 2019-08-22)
DX: A41.89 Other specified sepsis (principal); U07.1 COVID-19; J12.89 Other viral pneumonia; N39.0 Urinary tract infection, site not specified; N13.6 Pyonephrosis; N20.2 Calculus of kidney with calculus of ureter; R65.20 Severe sepsis without septic shock; N18.3 Chronic kidney disease, stage 3 (moderate); I12.9 Hypertensive chronic kidney disease with stage 1 through stage 4 chronic kidney disease, or unspecified chronic kidney disease; N40.0 Benign prostatic hyperplasia without lower urinary tract symptoms; N13.5 Crossing vessel and stricture of ureter without hydronephrosis; E78.5 Hyperlipidemia, unspecified
CPT/HCPCS: 36415; 50430; 71045; 71250; 74018; 74176; 74470; 76705; 76942; 78227; 80053; 81001; 82550; 82553; 82948; 83036; 83605; 83690; 83735; 83880; 84443; 84484; 85025; 85610; 85730; 87040; 87086; 93306; 97139; 99152; 99153; 99285; A9537; C1769; J0360; J0456; J0696; J1100; J1650; J2001; J2060; J2250; J2270; J2405; J2543; J2550; J2765; J3010; J7030; J7042; J7050; J7060; J7121; Q9967; U0002

== ENCOUNTER → 2019-11-16 | Day surgery (SDC) | payer MEDICARE, OTHER ==
--- NOTE | 2019-11-13 11:40 | Diagnostic Imaging Report ---
EXAMINATION: CHEST 2 VIEWS INDICATION: Pre-operative COMPARISON: Chest radiograph 08/30/2019 FINDINGS: LINES/TUBES:None LUNGS:The lungs are moderately inflated. Interval improvement in bilateral left greater than right airspace opacities. Residual left mid lung and lower lung interstitial opacities. PLEURA:No pleural effusion or pneumothorax. MEDIASTINUM:The cardiomediastinal silhouette appears normal in size and shape. BONES/SOFT TISSUES:No acute osseous injury. ABDOMEN:No free air under the diaphragm. IMPRESSION: Interval improvement in previously seen bilateral multifocal pneumonia. Residual interstitial opacities at the left mid lung and lower lung may represent atelectasis versus scarring. Signed by: Eris Major MD on 11/13/2019 11:37 AM
[2019-11-13 11:42] LABS: BASOPHILS # (AUTO) 0.1 (0.0-0.1); BASOPHILS % 0.5 % (0.0-1.0); EOSINOPHILS # (AUTO) 0.1 (0.0-0.4); EOSINOPHILS % 0.9 % (0.0-6.0); HEMATOCRIT 39.6 % (38.2-49.6); HEMOGLOBIN 11.9 g/dL (14.0-18.0); LYMPHOCYTES # (AUTO) 1.9 (1.0-3.2); LYMPHOCYTES % 15.7 % (18.0-39.1); MEAN CORPUSCULAR HEMOGLOBIN 29.5 pg (28-32); MEAN CORPUSCULAR HGB CONC 30.1 g/dL (31-35); MONOCYTES # (AUTO) 0.6 (0.2-0.8); MONOCYTES % 4.7 % (4.4-11.3); NEUTROPHILS # (AUTO) 9.3 (2.1-6.9); NEUTROPHILS % 76.3 % (38.7-80.0); PLATELET COUNT 143 x10e3/uL (140-360); RED BLOOD COUNT 4.04 x10e6/uL (4.3-5.7); RED CELL DISTRIBUTION WIDTH 16.4 % (11.7-14.4)
[2019-11-13 12:06] LABS: ANION GAP 12.1 mmol/L (8-16); CALCIUM 9.2 mg/dL (8.4-10.2); CREATININE, SERUM 1.69 mg/dL (0.72-1.25); POTASSIUM 5.1 mmol/L (3.5-5.1)
[~2019-11-16] MED LIST changes: +ACETAMINOPHEN/CODEINE 300MG - 30MG TAB ONE; +ACETAMINOPHEN325 M1 PO; +ADVAIR INH; +ASPIRIN ENTERI325 MG PO; +CEFTRIAXONE SOD 1 GM/NS 50 ML 50 ML IV ONE; +DECADRON6 MG PO; +DEXAMETHASONE SOD PHOS INJ 4 MG/ML VIAL ONE; +FENTANYL CITRATE/PF 100MCG/2 ML INJ ONE; +FUROSEMIDE40 MG PO; +GLYCOPYRROLATE INJ 0.2 MG/ML VIAL ONE; +IOPAMIDOL 300MG/ML 50ML INFUS..BTL IV ONE; +LIDOCAINE HCL 2% LOCAL INJ 5 ML SDV VIAL INJ ONE; +NEOSTIGMINE 1 MG/ML 10ML VIAL ONE; +NORVASC10 MG PO; +ONDANSETRON HCL INJ 2MG/ML 2ML 2 MG/ML VIAL ONE; +PROPOFOL IV EMULSION 10 MG/ML 20 ML VIAL ONE; +ROCURONIUM BROMIDE 10 MG/ML 5ML VIAL IV ONE; +SEVOFLURANE INHAL SOLN 250 ML PEN BTL ONE; +VITAMIN C500 MG PO; +VITAMIN D31 GM PO; +ZINC SULFATE220 M1 PO
[2019-11-16 11:43] VITALS: BP 170/71
--- NOTE | 2019-11-16 17:22 | Operative Report ---
DATE OF PROCEDURE: 11/16/2019 SURGEON: Anish Patel MD PREOPERATIVE DIAGNOSIS: Right mid ureteral stone. POSTOPERATIVE DIAGNOSIS: Right distal ureteral stone. OPERATIVE PROCEDURES PERFORMED: 1. Cystoscopy. 2. Right retrograde pyelogram. 3. Right ureteroscopy with laser lithotripsy. 4. Placement of right ureteral stent. 5. Removal of a right nephrostomy tube. ANESTHESIA: General anesthesia. ESTIMATED BLOOD LOSS: Minimal. INDICATIONS: Mr. Brito is a 74-year-old gentleman, who had right flank pain, was noted to have a right mid ureteral stone. At that time, he became seriously ill with bilateral COVID pneumonia, and right nephrostomy tube was placed. He now presents for definitive management of his stone. PROCEDURE IN DETAIL: The patient was brought to the operative room and placed in supine position. After administration of general anesthesia, he was placed in dorsal lithotomy position and prepped and draped in usual sterile fashion. Cystourethroscopy was performed using 21-Slovak cystoscope. The anterior and posterior urethra were noted to be normal. The prostate revealed lateral lobar hyperplasia with mild elevation of the median bar. The bladder was entered without difficulty. Upon entrance into the bladder, the ureteral orifices were in normal anatomical position and produced largely clear efflux on the left. There was minimal efflux compared to the right. There were no mucosal lesions identified. Using a 5-Slovak open-ended catheter, a right retrograde pyelogram was performed. This revealed a dense calcification approximately 8 mm in diameter in the distal right ureter with moderate hydronephrosis noted behind it. A wire was placed past the stone up into the right renal pelvis. The ureteral orifice was then dilated with a UroMax balloon and rigid ureteroscopy was performed. A large calcification was seen. A holmium laser was used to break this into smaller fragments. Almost all the visualized stone was removed and repeat ureteroscopy up to the mid ureter revealed no calcifications. The removed stones were sent to pathology for microscopic analysis and a small sample was given to the patient's . A 6-Slovak double-pigtail stent was then placed such that one coil was in the renal pelvis and subsequent coil was in the bladder. The string was allowed to exit the urethral meatus. The cystoscope and the sheath were removed after the bladder was drained. The right nephrostomy tube was then removed in its entirety and a Band-Aid placed over the wound. The patient was returned to supine position and anesthesia was reversed. He was transferred to a bed and taken to the postanesthesia care unit in good condition. Of note, the needle and instruments were correct at the conclusion of the case. MD MORENO King/MORGAN /[id number]
== END | disposition home or self-care (01) ==
LOC: OR 06:28
PROVIDERS: ATTEND Urology
DX: N20.1 Calculus of ureter (principal); N13.30 Unspecified hydronephrosis; Z43.6 Encounter for attention to other artificial openings of urinary tract; I12.9 Hypertensive chronic kidney disease with stage 1 through stage 4 chronic kidney disease, or unspecified chronic kidney disease; N18.9 Chronic kidney disease, unspecified; I25.10 Atherosclerotic heart disease of native coronary artery without angina pectoris; K21.9 Gastro-esophageal reflux disease without esophagitis; I45.10 Unspecified right bundle-branch block; Z01.810 Encounter for preprocedural cardiovascular examination; Z01.812 Encounter for preprocedural laboratory examination; Z01.818 Encounter for other preprocedural examination; Z11.59 Encounter for screening for other viral diseases; Z79.02 Long term (current) use of antithrombotics/antiplatelets; Z79.82 Long term (current) use of aspirin; Z86.19 Personal history of other infectious and parasitic diseases
CPT/HCPCS: 36415; 52356; 71046; 74420; 80048; 85025; 88300; 93005; C1758; C1769; C2617; J0696; J1100; J2001; J2405; J2704; J2710; J3010; Q9967; U0002

== ENCOUNTER 2020-02-02 20:54 | Inpatient (IN) | payer MEDICARE, OTHER ==
[~2020-02-02] VITALS: Ht 170.2 cm; Wt 79.4 kg
[~2020-02-02 20:54] MED LIST changes: -ACETAMINOPHEN/CODEINE 300MG - 30MG TAB ONE; -CEFTRIAXONE SOD 1 GM/NS 50 ML 50 ML IV ONE; -DEXAMETHASONE SOD PHOS INJ 4 MG/ML VIAL ONE; -FENTANYL CITRATE/PF 100MCG/2 ML INJ ONE; -GLYCOPYRROLATE INJ 0.2 MG/ML VIAL ONE; -IOPAMIDOL 300MG/ML 50ML INFUS..BTL IV ONE; -LIDOCAINE HCL 2% LOCAL INJ 5 ML SDV VIAL INJ ONE; -NEOSTIGMINE 1 MG/ML 10ML VIAL ONE; -ONDANSETRON HCL INJ 2MG/ML 2ML 2 MG/ML VIAL ONE; -PROPOFOL IV EMULSION 10 MG/ML 20 ML VIAL ONE; -ROCURONIUM BROMIDE 10 MG/ML 5ML VIAL IV ONE; -SEVOFLURANE INHAL SOLN 250 ML PEN BTL ONE
[2020-02-02] MEDS ORDERED: ONDANSETRON HCL INJ 2MG/ML 2ML 2 MG/ML VIAL IV STA (21:02)
[2020-02-02] MEDS ORDERED: CEFEPIME 1GM/NS 0.9% 50 ML 50 ML IV STA (21:02)
[2020-02-02] MEDS ORDERED: SODIUM CHLORIDE 0.9% 1000ML 1,000 ML IV STA (21:02)
[2020-02-02] MEDS ORDERED: MORPHINE SULFATE INJ 4 MG/ML INJ 1ML IV PRN ×2 (21:15→22:45)
[2020-02-02] MEDS ORDERED: ACETAMINOPHEN 325 MG TAB PO ONE (21:15)
[2020-02-02 21:35] LABS: BASOPHILS # (AUTO) 0.1 (0.0-0.1); BASOPHILS % 0.4 % (0.0-1.0); EOSINOPHILS % 0.1 % (0.0-6.0); HEMATOCRIT 37.8 % (38.2-49.6); HEMOGLOBIN 11.9 g/dL (14.0-18.0); LYMPHOCYTES # (AUTO) 1.3 (1.0-3.2); LYMPHOCYTES % 9.3 % (18.0-39.1); MEAN CORPUSCULAR HEMOGLOBIN 29.6 pg (28-32); MEAN CORPUSCULAR HGB CONC 31.5 g/dL (31-35); MONOCYTES % 7.2 % (4.4-11.3); NEUTROPHILS # (AUTO) 11.6 (2.1-6.9); NEUTROPHILS % 82.1 % (38.7-80.0); PLATELET COUNT 144 x10e3/uL (140-360); RED BLOOD COUNT 4.02 x10e6/uL (4.3-5.7); RED CELL DISTRIBUTION WIDTH 14.4 % (11.7-14.4)
[2020-02-02 21:37] LABS: CLARITY,URINE CLOUDY (CLEAR); COLOR,URINE YELLOW (YELLOW); KETONES,URINE NEGATIVE (NEGATIVE); LEUKOCYTE ESTERASE ,URINE MODERATE (NEGATIVE); NITRITE,URINE NEGATIVE (NEGATIVE); PROTEIN,URINE DIPSTICK 1+ (NEGATIVE); URINE UROBILINOGEN 0.2 mg/dL (0.2 - 1)
[2020-02-02 21:42] LABS: BACTERIA,URINE MODERATE /HPF; EPITHELIAL CELLS,URINE FEW /LPF; WBC,URINE (MAN) 21-50 /HPF (0-5)
[2020-02-02 21:54] LABS: ALBUMIN 3.3 g/dL (3.5-5.0); ALBUMIN/GLOBULIN RATIO 0.9 (0.8-2.0); ANION GAP 14.5 mmol/L (8-16); CALCIUM 8.8 mg/dL (8.4-10.2); CREATININE, SERUM 1.9 mg/dL (0.72-1.25); POTASSIUM 4.5 mmol/L (3.5-5.1)
[2020-02-02] MEDS ORDERED: ASPIRIN 81 MG CHEW TAB PO ONE (22:00)
[2020-02-02 22:03] LABS: CREATINE KINASE MB 0.3 ng/mL (0-5.0)
[2020-02-02] MEDS ORDERED: GUAIFENESIN/CODEINE 10 ML CUP PO PRN (22:45)
[2020-02-02] MEDS ORDERED: DIPHENHYDRAMINE HCL 25 MG CAP PO PRN (22:45)
[2020-02-02] MEDS ORDERED: CHLORASEPTIC SPRAY 177 ML BTL MM PRN (22:45)
[2020-02-02] MEDS ORDERED: DEXTROSE 50% SYRINGE 50 ML IV PRN (22:45)
[2020-02-02] MEDS ORDERED: POLYETHYLENE GLYCOL 3350 17 GM PACK PO PRN (22:45)
[2020-02-02] MEDS ORDERED: ALBUTEROL/IPRATROPIUM 3 ML NEB NEB PRN (22:45)
[2020-02-02] MEDS ORDERED: SIMETHICONE 80 MG CHEW PO PRN (22:45)
[2020-02-02] MEDS ORDERED: POTASSIUM CHLORIDE 20 MEQ TAB CR PO PRN (22:45)
[2020-02-02] MEDS ORDERED: HYDROCODONE/APAP 5MG-325MG TAB PO PRN (22:45)
[2020-02-02] MEDS ORDERED: MELATONIN 5 MG TABLET PO PRN (22:45)
[2020-02-02] MEDS ORDERED: HYDRALAZINE HCL 20 MG/ML VIAL IV PRN (22:45)
[2020-02-02] MEDS: MEROPENEM 500MG/ NS 50ML 500 MG in MEROPENEM 500MG/ NS 50ML 50 ML IV SCH (23:21)
[2020-02-02] MEDS: SODIUM CHLORIDE 0.9% 1000ML 1,000 ML IV SCH (23:21)
[2020-02-03] VITALS (9 sets, daily range): BP systolic 113–132; BP diastolic 53–77
[2020-02-03] MEDS ORDERED: ASPIRIN81 MG (01:14)
[2020-02-03 05:32] LABS: BASOPHILS % 0.3 % (0.0-1.0); EOSINOPHILS % 0.1 % (0.0-6.0); HEMATOCRIT 34.4 % (38.2-49.6); HEMOGLOBIN 10.8 g/dL (14.0-18.0); LYMPHOCYTES # (AUTO) 1.4 (1.0-3.2); LYMPHOCYTES % 10.4 % (18.0-39.1); MEAN CORPUSCULAR HEMOGLOBIN 30.3 pg (28-32); MEAN CORPUSCULAR HGB CONC 31.4 g/dL (31-35); MEAN CORPUSCULAR VOLUME 96.6 fL (81-99); MONOCYTES # (AUTO) 0.9 (0.2-0.8); MONOCYTES % 6.7 % (4.4-11.3); NEUTROPHILS # (AUTO) 10.9 (2.1-6.9); NEUTROPHILS % 81.6 % (38.7-80.0); PLATELET COUNT 116 x10e3/uL (140-360); RED BLOOD COUNT 3.56 x10e6/uL (4.3-5.7); RED CELL DISTRIBUTION WIDTH 14.3 % (11.7-14.4)
[2020-02-03 05:50] LABS: ALBUMIN 2.6 g/dL (3.5-5.0); ALBUMIN/GLOBULIN RATIO 0.8 (0.8-2.0); ANION GAP 11.9 mmol/L (8-16); CALCIUM 8.3 mg/dL (8.4-10.2); CREATININE, SERUM 1.77 mg/dL (0.72-1.25); POTASSIUM 4.9 mmol/L (3.5-5.1)
[2020-02-03 06:18] LABS: CREATINE KINASE MB 0.8 ng/mL (0-5.0)
[2020-02-03] MEDS ORDERED: ONDANSETRON HCL INJ 2MG/ML 2ML 2 MG/ML VIAL IV PRN (06:45)
[2020-02-03] MEDS: MEROPENEM 500MG/ NS 50ML 500 MG in MEROPENEM 500MG/ NS 50ML 50 ML IV SCH ×2 (06:46)
[2020-02-03] MEDS: SODIUM CHLORIDE 0.9% 1000ML 1,000 ML IV SCH ×2 (08:57→17:33)
[2020-02-03] MEDS: ALLOPURINOL 300 MG TAB PO SCH (13:24)
[2020-02-03] MEDS: CLOPIDOGREL BISULFATE 75 MG TAB PO SCH (13:24)
[2020-02-03] MEDS: PANTOPRAZOLE SOD 40 MG TABEC PO SCH (13:24)
[2020-02-03] MEDS: TAMSULOSIN HCL 0.4 MG CAP PO SCH (13:24)
[2020-02-03] MEDS: LATANOPROST(OPTH) 2.5 ML BTL OP SCH (13:25)
[2020-02-03 14:19] LABS: CREATINE KINASE MB 0.7 ng/mL (0-5.0)
[2020-02-03] MEDS: ACETAMINOPHEN 325 MG TAB PO PRN (16:14)
[2020-02-03] MEDS: ENOXAPARIN SOD INJ 40 MG/0.4 ML SYR SC SCH (17:31)
[2020-02-03] MEDS: MEROPENEM 500MG/ NS 50ML 50 ML IV SCH (17:33)
[2020-02-03] MEDS: ATORVASTATIN 20 MG TAB PO SCH (20:20)
[2020-02-03] MEDS: METOPROLOL SUCCINATE 50 MG TAB XL PO SCH (20:20)
[2020-02-03] MEDS ORDERED: RAMIPRIL 5 MG CAP PO SCH (21:00)
[2020-02-04] VITALS (7 sets, daily range): BP systolic 113–136; BP diastolic 52–67
[2020-02-04] MEDS: MEROPENEM 500MG/ NS 50ML 50 ML IV SCH ×2 (00:04→05:03)
[2020-02-04] MEDS: SODIUM CHLORIDE 0.9% 1000ML 1,000 ML IV SCH ×2 (05:03→18:15)
[2020-02-04 07:44] LABS: BASOPHILS % 0.3 % (0.0-1.0); EOSINOPHILS # (AUTO) 0.1 (0.0-0.4); EOSINOPHILS % 0.9 % (0.0-6.0); HEMATOCRIT 33.2 % (38.2-49.6); HEMOGLOBIN 10.6 g/dL (14.0-18.0); LYMPHOCYTES # (AUTO) 1.6 (1.0-3.2); LYMPHOCYTES % 12.8 % (18.0-39.1); MEAN CORPUSCULAR HEMOGLOBIN 30.2 pg (28-32); MEAN CORPUSCULAR HGB CONC 31.9 g/dL (31-35); MEAN CORPUSCULAR VOLUME 94.6 fL (81-99); MONOCYTES # (AUTO) 0.8 (0.2-0.8); MONOCYTES % 6.2 % (4.4-11.3); NEUTROPHILS % 79.2 % (38.7-80.0); PLATELET COUNT 115 x10e3/uL (140-360); RED BLOOD COUNT 3.51 x10e6/uL (4.3-5.7); RED CELL DISTRIBUTION WIDTH 14.4 % (11.7-14.4)
[2020-02-04] MEDS: LATANOPROST(OPTH) 2.5 ML BTL OP SCH (08:02)
[2020-02-04] MEDS: PANTOPRAZOLE SOD 40 MG TABEC PO SCH (08:02)
[2020-02-04] MEDS: TAMSULOSIN HCL 0.4 MG CAP PO SCH (08:02)
[2020-02-04] MEDS: CLOPIDOGREL BISULFATE 75 MG TAB PO SCH (08:02)
[2020-02-04] MEDS: ALLOPURINOL 300 MG TAB PO SCH (08:02)
[2020-02-04 08:04] LABS: ANION GAP 15.4 mmol/L (8-16); CALCIUM 8.6 mg/dL (8.4-10.2); CREATININE, SERUM 1.59 mg/dL (0.72-1.25); POTASSIUM 4.4 mmol/L (3.5-5.1)
[2020-02-04] MEDS ORDERED: CEFTRIAXONE SOD 1 GM/NS 50 ML 50 ML IV SCH ×2 (11:15→16:45)
[2020-02-04] MEDS: ENOXAPARIN SOD INJ 40 MG/0.4 ML SYR SC SCH (16:35)
[2020-02-04] MEDS: ACETAMINOPHEN 325 MG TAB PO PRN (19:42)
[2020-02-04] MEDS: ATORVASTATIN 20 MG TAB PO SCH (21:07)
[2020-02-04] MEDS: METOPROLOL SUCCINATE 50 MG TAB XL PO SCH (21:08)
[2020-02-05] VITALS: BP 119/99
[2020-02-05 05:20] LABS: BASOPHILS % 0.3 % (0.0-1.0); EOSINOPHILS # (AUTO) 0.2 (0.0-0.4); EOSINOPHILS % 2.1 % (0.0-6.0); HEMATOCRIT 30.8 % (38.2-49.6); HEMOGLOBIN 9.6 g/dL (14.0-18.0); LYMPHOCYTES # (AUTO) 1.6 (1.0-3.2); MEAN CORPUSCULAR HEMOGLOBIN 29.4 pg (28-32); MEAN CORPUSCULAR HGB CONC 31.2 g/dL (31-35); MEAN CORPUSCULAR VOLUME 94.2 fL (81-99); MONOCYTES # (AUTO) 0.6 (0.2-0.8); MONOCYTES % 7.3 % (4.4-11.3); NEUTROPHILS # (AUTO) 6.2 (2.1-6.9); NEUTROPHILS % 71.8 % (38.7-80.0); PLATELET COUNT 102 x10e3/uL (140-360); RED BLOOD COUNT 3.27 x10e6/uL (4.3-5.7); RED CELL DISTRIBUTION WIDTH 14.2 % (11.7-14.4)
[2020-02-05 05:48] LABS: ANION GAP 11.6 mmol/L (8-16); CALCIUM 8.5 mg/dL (8.4-10.2); CREATININE, SERUM 1.44 mg/dL (0.72-1.25); POTASSIUM 4.6 mmol/L (3.5-5.1)
[2020-02-05] MEDS: PANTOPRAZOLE SOD 40 MG TABEC PO SCH (07:47)
[2020-02-05 08:22] VITALS: BP 134/63
[2020-02-05 08:43] VITALS: BP 134/63
[2020-02-05] MEDS: TAMSULOSIN HCL 0.4 MG CAP PO SCH (08:56)
[2020-02-05] MEDS: ALLOPURINOL 300 MG TAB PO SCH (08:56)
[2020-02-05] MEDS: LATANOPROST(OPTH) 2.5 ML BTL OP SCH (08:56)
[2020-02-05] MEDS: CLOPIDOGREL BISULFATE 75 MG TAB PO SCH (08:56)
[2020-02-05] MEDS: SODIUM CHLORIDE 0.9% 1000ML 1,000 ML IV SCH (10:58)
[2020-02-05 11:41] VITALS: BP 135/68
[2020-02-05] MEDS ORDERED: ONDANSETRON HCL 4 MG ORAL DISINTEGRATING TAB PO PRN (13:45)
== END 2020-02-05 14:20 | disposition home or self-care (01) | DRG 872 ==
LOC: ER 20:56 → ERHOLD 22:24 → MED/SURG2 02-03 00:15
PROVIDERS: ADMIT Internal Medicine; ATTEND Internal Medicine
DX: A41.9 Sepsis, unspecified organism (principal); N17.9 Acute kidney failure, unspecified; N39.0 Urinary tract infection, site not specified; I10 Essential (primary) hypertension; N40.0 Benign prostatic hyperplasia without lower urinary tract symptoms; E78.5 Hyperlipidemia, unspecified; K21.9 Gastro-esophageal reflux disease without esophagitis; Z95.5 Presence of coronary angioplasty implant and graft; Z87.891 Personal history of nicotine dependence; Z91.048 Other nonmedicinal substance allergy status; R65.20 Severe sepsis without septic shock; Z86.19 Personal history of other infectious and parasitic diseases; Z83.3 Family history of diabetes mellitus; Z82.49 Family history of ischemic heart disease and other diseases of the circulatory system; N20.0 Calculus of kidney; Z87.442 Personal history of urinary calculi; B96.1 Klebsiella pneumoniae [K. pneumoniae] as the cause of diseases classified elsewhere; Z20.828 Contact with and (suspected) exposure to other viral communicable diseases
CPT/HCPCS: 36415; 80048; 80053; 81001; 82550; 82553; 83605; 84484; 85025; 87040; 87086; 87186; 99284; J0692; J0696; J1650; J2270; J2405; J7030; U0002